=== PATIENT | male | born 1975 | race Hispanic/Latino ===

== ENCOUNTER 2017-02-18 19:05 | Inpatient (IN) | payer MEDICAID ==
[2017-02-18 19:05] VITALS: BMI 23.0
[2017-02-18] MEDS ORDERED: Sodium Chloride 0.9% 1,000 ML IV ONE (20:19)
--- NOTE | 2017-02-18 20:21 | C.PDOC ---
History Of Present Illness 41 y/o male presents to ED with complaints of abdominal pain and blurred vision for several weeks. Patient is an alcoholic and states he was admitted at [facility] for 5 days last week and was diagnosed with Pancreatitis . He was discharged 2 days ago. He was reportedly diagnosed with c.diff as well and ws discharge with a prescription for Flagyl that he did not fill. Patient admits to drinking ETOH daily (750ml). Patient denies fever,chills, chest pain, n/v/d or any other complaints at this time. Time Seen by Provider: 02/18/17 19:56 Chief Complaint (Nursing): Abdominal Pain History Per: Patient History/Exam Limitations: no limitations Onset/Duration Of Symptoms: Days Current Symptoms Are (Timing): Still Present Past Medical History Reviewed: Historical Data, Nursing Documentation, Vital Signs Vital Signs: Last Vital Signs Temp 97.3 F L 02/18/17 19:33 Pulse 119 H 02/18/17 19:33 Resp 16 02/18/17 19:33 BP 136/93 H 02/18/17 19:33 Pulse Ox 98 02/18/17 21:58 - Medical History PMH: Anxiety, Pancreatitis, Seizures (1 time) - [facility] Procedures DETOXIFICATION SERVICES FOR SUBSTANCE ABUSE TREATMENT (12/10/16) Family History: States: Unknown Family Hx - Social History Hx Alcohol Use: Yes Hx Substance Use: No (denies) - Immunization History Hx Tetanus Toxoid Vaccination: No Hx Influenza Vaccination: No Hx Pneumococcal Vaccination: No Review Of Systems Except As Marked, All Systems Reviewed And Found Negative. Constitutional: Negative for: Fever, Chills Eyes: Positive for: Vision Change Cardiovascular: Negative for: Chest Pain Gastrointestinal: Positive for: Abdominal Pain. Negative for: Nausea, Vomiting , Diarrhea Genitourinary: Negative for: Dysuria, Frequency Neurological: Negative for: Headache Physical Exam - Physical Exam Appears: No Acute Distress, Other (Intoxicated) Skin: Dry Head: Atraumatic, Normacephalic Eye(s): bilateral: Normal Inspection, PERRL, EOMI Oral Mucosa: Dry Cardiovascular: Rhythm Regular, No Murmur Respiratory: Normal Breath Sounds, No Rales, No Rhonchi, No Wheezing Gastrointestinal/Abdominal: Soft, No Tenderness, No Guarding, No Rebound Extremity: Normal ROM, Capillary Refill (<2 seconds) Neurological/Psych: Oriented x3, Other (Patient has slurred speech and unable to complete sentences due to flight of ideas and thoughts wandering.) ED Course And Treatment - Laboratory Results Result Diagrams: 02/18/17 20:35 02/18/17 20:35 Lab Interpretation: Abnormal (K+ 2.8 treated with Kdur, Lipase 1014, UDS + opiates and benzodiazepines, ETOH 144) O2 Sat by Pulse Oximetry: 98 (RA) Pulse Ox Interpretation: Normal Reevaluation Time: 21:58 Reassessment Condition: Improved (Patient appears comfortable.) - Physician Consult Information Time Consulting Physician Contacted: 21:58 Physician Contacted: Naila Aguilar Outcome Of Conversation: Patient to be admitted for treatment of alcoholic pancreatitis. Disposition - Disposition Disposition: HOSPITALIZED Disposition Time: 22:11 Condition: STABLE - POA Present On Arrival: None - Clinical Impression Clinical Impression: Acute alcoholic pancreatitis - Scribe Statement The provider has reviewed the documentation as recorded by the Tammieibcarla Sinha All medical record entries made by the Scribe were at my direction and personally dictated by me. I have reviewed the chart and agree that the record accurately reflects my personal performance of the history, physical exam, medical decision making, and the department course for this patient. I have also personally directed, reviewed, and agree with the discharge instructions and disposition.
[2017-02-18 20:41] LABS: BASO # 0.1 K/uL (0.0-0.2); BASO % 1.3 % (0.0-2.0); EOS # 0.1 K/uL (0.0-0.7); EOS % 1.6 % (0.0-4.0); HEMOGLOBIN 12.9 g/dL (12.0-18.0); LYMPH # 2.3 K/uL (1.0-4.3); LYMPH % 26.3 % (20.0-40.0); MEAN CELL VOLUME 99.5 fL (80.0-94.0); MEAN CORPUSCULAR HEMOGLOBIN 34.5 pg (27.0-31.0); MEAN CORPUSCULAR HGB CONC 34.7 g/dL (33.0-37.0); MEAN PLATELET VOLUME 7.9 fL (7.2-11.7); MONO # 1.4 K/uL (0.0-0.8); MONO % 16.2 % (0.0-10.0); NEUT # 4.7 K/uL (1.8-7.0); NEUT % 54.6 % (50.0-75.0); RBC 3.73 Mil/uL (4.40-5.90); WHITE BLOOD COUNT 8.6 K/uL (4.8-10.8)
[2017-02-18 20:52] LABS: ALBUMIN 4.6 g/dL (3.5-5.0)
[2017-02-18 20:54] LABS: GFR AFRICAN-AMERICAN > 60; GFR NON-AFRICAN AMERICAN > 60
[2017-02-18 20:55] LABS: ALB/GLOB RATIO 1.3 (1.0-2.1); ALT/SGPT 79 U/L (21-72); AST/SGOT 122 U/L (17-59); BLOOD UREA NITROGEN 19 mg/dL (9-20); LIPASE 1014 U/L (23-300)
[2017-02-18 21:11] LABS: SQUAMOUS EPITHIAL 1 /hpf (0-5); URINE BACTERIA RARE (<OCC); URINE BILIRUBIN 1+ (NEGATIVE); URINE BLOOD NEGATIVE (NEGATIVE); URINE CLARITY Hazy (Clear); URINE COLOR Amber (YELLOW); URINE GLUCOSE (UA) NORMAL (Normal); URINE HYALINE CAST >20 /lpf (0-2); URINE LEUKOCYTE ESTERASE NEG Leu/uL (Negative); URINE NITRATE NEGATIVE (NEGATIVE); URINE PROTEIN 2+ mg/dL (NEGATIVE)
[2017-02-18] MEDS ORDERED: Potassium Chloride 20 mEq ER Tab PO STA (21:12)
[2017-02-18 21:14] LABS: BARBITURATES, UR NEGATIVE (NEGATIVE); BENZODIAZEPINES, UR POSITIVE (NEGATIVE)
[2017-02-18 21:18] LABS: OPIATES, UR POSITIVE (NEGATIVE)
[2017-02-18 21:19] LABS: PHENCYCLIDINE, UR NEGATIVE (NEGATIVE)
[2017-02-18] MEDS ORDERED: Potassium Chloride 20 mEq ER Tab PO ONE (22:04)
[2017-02-18] MEDS ORDERED: Morphine 4 MG/ML VIAL IV PRN (23:57)
[2017-02-19] MEDS: Potassium Ch 20mEq in D5-1/2NS 1,000 ML IV SCH ×2 (00:50→21:18)
--- NOTE | 2017-02-19 02:18 | PCM.RRTMUL ---
<Leonie Griffin - Last Filed: 02/19/17 02:38> DEMO COORDINATOR Nurses Assessment - Situation Room Number:: 557 A - Vital Signs Blood Pressure:: 166/84 Pulse Rate:: 88 Respiratory Rate:: 20 Temperature:: 98.4 F I.Reason for DEMO COORDINATOR - A) Acute Change in Patient: Subjective: Seizure - A) Initial Vital Signs: Blood Pressure: 181/94 Pulse Rate: 114 Respiratory Rate: 20 O2 Sat by Pulse Oximetry: 95 Finger Stick Blood Glucose: 81 - B) Neurological Status (Select all that apply): Alert, Responsive, Verbal, Follows Commands, Confused. absent: Oriented - Constitutional Appears: Non-toxic, No Acute Distress, Unkempt - Head Head Exam: ATRAUMATIC, NORMAL INSPECTION - Eyes Eye Exam: EOMI, Normal appearance, PERRL - Respiratory Exam Respiratory Exam: Clear to Ausculation Bilateral, NORMAL BREATHING PATTERN. absent: Respiratory Distress - Cardiovascular Exam Cardiovascular Exam: REGULAR RHYTHM, +S1, +S2 - GI/Abdominal Exam GI & Abdominal Exam: Soft, Normal Bowel Sounds. absent: Distended, Firm, Guarding, Tenderness - Neurological Exam Neurological Exam: Alert, Awake, CN II-XII Intact. absent: Oriented x3 Plan - B. Assessment of Findings&Treatment Plan Rapid Response called for seizure activity. Per RN patient was foaming at the mouth and having a tonic clonic seizure for a couple minutes. Patient does not realize he had a seizure. Patient was talking denied SOB, chest pain. He had multiple bite douglas on his tongue appearing of different ages. Vitals stable. Patient was awake and talking in full sentences. On admission he has elevated alcohol level. Patient reports heavy alcohol use. CBC, CMP, MG, Phos, Polactin ordered given Thiamine 100mg IVP x 1 dose and Ativan 1mg IVP x 1 dose Ativan PO taper added, Ativan 1mg IVP Q3 hours prn MV/thiamine/folic acid Rec: Seizure workup per primary team. EEG ordered. <Patrick Orozco - Last Filed: 02/21/17 23:03> Attending/Attestation - Attestation I have personally seen and examined this patient.: Yes I have fully participated in the care of the patient.: Yes I have reviewed all pertinent clinical information, including history, physical exam and plan: Yes
[2017-02-19] MEDS ORDERED: Thiamine 100 mg/ml Inj IV STA (02:20)
[2017-02-19 02:56] LABS: AMYLASE 339 U/L (30-110); BLOOD UREA NITROGEN 13 mg/dL (9-20); GFR AFRICAN-AMERICAN > 60; GFR NON-AFRICAN AMERICAN > 60
[2017-02-19 02:57] LABS: CALCIUM 8.4 mg/dl (8.6-10.4); MAGNESIUM 1.6 mg/dL (1.6-2.3)
[2017-02-19 03:05] LABS: BASO # 0.1 K/uL (0.0-0.2); BASO % 0.7 % (0.0-2.0); EOS # 0.2 K/uL (0.0-0.7); EOS % 2.7 % (0.0-4.0); HEMOGLOBIN 12.2 g/dL (12.0-18.0); LYMPH % 38.4 % (20.0-40.0); MEAN CELL VOLUME 101.2 fL (80.0-94.0); MEAN CORPUSCULAR HEMOGLOBIN 34.3 pg (27.0-31.0); MEAN CORPUSCULAR HGB CONC 33.9 g/dL (33.0-37.0); MEAN PLATELET VOLUME 8.4 fL (7.2-11.7); MONO # 1.4 K/uL (0.0-0.8); NEUT # 3.1 K/uL (1.8-7.0); NEUT % 40.2 % (50.0-75.0); NRBC % 0.1 % (0.0-2.0); RBC 3.56 Mil/uL (4.40-5.90); RED CELL DISTRIBUTION WIDTH 12.9 % (11.5-14.5); WHITE BLOOD COUNT 7.7 K/uL (4.8-10.8)
[2017-02-19] MEDS: Hydrocortisone 2.5% Rectal Cream(30 gm) PR SCH ×2 (11:16→18:48)
[2017-02-19] MEDS: Multiple Vitamins Tab PO SCH (11:17)
--- NOTE | 2017-02-19 11:44 | US ---
HISTORY: Acute pancreatitis COMPARISON: None available. TECHNIQUE: Sonographic evaluation of the abdomen. FINDINGS: LIVER: Measures 18.9 cm in sagittal dimension. Echogenic liver may be seen in setting of hepatic parenchymal disease or fatty infiltration. No focal hepatic mass identified. The main portal vein appears patent with normal directional flow. No intrahepatic bile duct dilatation. GALLBLADDER: No gallstones. No gallbladder wall thickening. Negative sonographic Esteban's sign as assessed by the wrapper stripper. COMMON BILE DUCT: Measures 4 mm. PANCREAS: Not well visualized. RIGHT KIDNEY: Measures 10.9 x 5.2 x 5.8cm. No obstructing calculus or hydronephrosis identified. LEFT KIDNEY: Measures 11.2 x 6.2 x 6.6cm. No obstructing calculus or hydronephrosis identified. SPLEEN: Measures approximately 9.9 cm AORTA: Limited views appear unremarkable. IVC: Limited views appear unremarkable. OTHER FINDINGS: None. IMPRESSION: Echogenic liver may be seen in setting of hepatic parenchymal disease or fatty infiltration.
[2017-02-19 12:12] LABS: ALBUMIN 3.7 g/dL (3.5-5.0)
[2017-02-19 12:15] LABS: ALB/GLOB RATIO 1.3 (1.0-2.1); ALT/SGPT 61 U/L (21-72); AST/SGOT 73 U/L (17-59); BLOOD UREA NITROGEN 11 mg/dL (9-20); GFR AFRICAN-AMERICAN > 60; GFR NON-AFRICAN AMERICAN > 60
[2017-02-19 12:16] LABS: LIPASE 972 U/L (23-300); MAGNESIUM 1.6 mg/dL (1.6-2.3)
[2017-02-19 12:33] LABS: PROLACTIN 11.4 ng/mL (3.7-17.9)
[2017-02-19] MEDS ORDERED: Potassium Chloride 20 mEq/15 ml LIQ UD PO ONE (17:00)
--- NOTE | 2017-02-19 18:06 | CP.PCM.HP ---
History of Present Illness - History of Present Illness History of Present Illness: pt admited from er for abd pain has been drinking alc smoks and has pancreatitis Present on Admission - Present on Admission Any Indicators Present on Admission: No Review of Systems - Review of Systems Systems not reviewed;Unavailable: Acuity of Condition, Intoxicated - Constitutional Constitutional: Fatigue - EENT Eyes: Blurred Vision Nose/Mouth/Throat: As Per HPI - Cardiovascular Cardiovascular: Chest Pain at Rest, Dyspnea on Exertion - Respiratory Respiratory: Dyspnea on Exertion - Gastrointestinal Gastrointestinal: Abdominal Pain, Bloating, Nausea - Genitourinary Genitourinary: As Per HPI - Musculoskeletal Musculoskeletal: As Per HPI - Integumentary Integumentary: As Per HPI - Neurological Neurological: Convulsions, Dizziness Additional comments: hx - Psychiatric Psychiatric: Change in Appetite - Endocrine Endocrine: As Per HPI - Hematologic/Lymphatic Hematologic: As Per HPI Past Patient History - Infectious Disease Hx of Infectious Diseases: C.diff - Past Medical History & Family History Past Medical History?: No - Past Social History Smoking Status: Current Some Days Smoker - CARDIAC Hx Hypertension: No - PULMONARY Hx Respiratory Disorders: No - NEUROLOGICAL Hx Seizures: Yes (1 time) - HEENT Hx HEENT Problems: Yes (wears glasses) - RENAL Hx Chronic Kidney Disease: No - ENDOCRINE/METABOLIC Hx Endocrine Disorders: No - HEMATOLOGICAL/ONCOLOGICAL Hx Human Immunodeficiency Virus (HIV): No - INTEGUMENTARY Hx Dermatological Problems: No - MUSCULOSKELETAL/RHEUMATOLOGICAL Hx Musculoskeletal Disorders: Yes Hx Falls: No Hx Unsteady Gait: Yes - GASTROINTESTINAL Hx Pancreatitis: Yes - GENITOURINARY/GYNECOLOGICAL Hx Sexually Transmitted Disorders: No - PSYCHIATRIC Hx Substance Use: No - SURGICAL HISTORY Hx Surgeries: Yes Other/Comment: colonoscopy 11/2016 - ANESTHESIA Hx Anesthesia: No Hx Anesthesia Reactions: No Hx Malignant Hyperthermia: No Has any member of the family had a problem w/ anesthesia?: No Meds Allergies/Adverse Reactions: Allergies Allergy/AdvReac Type Severity Reaction Status Date / Time No Known Allergies Allergy Verified 01/06/17 20:01 Physical Exam - Constitutional Appears: In Acute Distress - Head Exam Head Exam: NORMAL INSPECTION - Eye Exam Eye Exam: Normal appearance Pupil Exam: NORMAL ACCOMODATION - ENT Exam ENT Exam: Mucous Membranes Moist - Neck Exam Neck exam: Positive for: Full Rom - Respiratory Exam Respiratory Exam: Clear to Auscultation Bilateral - Cardiovascular Exam Cardiovascular Exam: REGULAR RHYTHM - GI/Abdominal Exam GI & Abdominal Exam: Normal Bowel Sounds - Exam Exam: NORMAL INSPECTION External exam: NORMAL EXTERNAL EXAM - Back Exam Back exam: NORMAL INSPECTION - Neurological Exam Neurological exam: Oriented x3 - Psychiatric Exam Psychiatric exam: Normal Affect - Skin Skin Exam: Dry Results - Vital Signs Recent Vital Signs: Last Vital Signs Temp 98.2 F 02/19/17 16:00 Pulse 86 02/19/17 16:00 Resp 20 02/19/17 16:00 BP 132/80 02/19/17 16:00 Pulse Ox 98 02/19/17 16:00 - Labs Result Diagrams: 02/19/17 02:47 02/19/17 11:55 Labs: Laboratory Results - last 24 hr 02/18/17 02/19/17 02/19/17 23:55 02:03 02:36 WBC RBC Hgb Hct MCV MCH MCHC RDW Plt Count MPV Neut % (Auto) Lymph % (Auto) Franklin % (Auto) Eos % (Auto) Baso % (Auto) Neut # Lymph # Franklin # Eos # Baso # Sodium 137 Potassium 2.9 L Chloride 94 L Carbon Dioxide 11 L* D Anion Gap 35 H BUN 13 Creatinine 0.8 Est GFR ( Amer) > 60 Est GFR (Non-Af Amer) > 60 POC Glucose (mg/dL) 81 Random Glucose 90 Calcium 8.4 L Phosphorus 4.4 Magnesium 1.6 Total Bilirubin AST ALT Alkaline Phosphatase Total Protein Albumin Globulin Albumin/Globulin Ratio Amylase 339 H Lipase Prolactin C. difficile Ag & Toxin Negative 02/19/17 02/19/17 02:47 11:55 WBC 7.7 RBC 3.56 L Hgb 12.2 Hct 36.0 MCV 101.2 H MCH 34.3 H MCHC 33.9 RDW 12.9 Plt Count 193 MPV 8.4 Neut % (Auto) 40.2 L Lymph % (Auto) 38.4 Franklin % (Auto) 18.0 H Eos % (Auto) 2.7 Baso % (Auto) 0.7 Neut # 3.1 Lymph # 3.0 Franklin # 1.4 H Eos # 0.2 Baso # 0.1 Sodium 135 Potassium 2.7 L Chloride 94 L Carbon Dioxide 20 L Anion Gap 24 H BUN 11 Creatinine 0.6 L Est GFR ( Amer) > 60 Est GFR (Non-Af Amer) > 60 POC Glucose (mg/dL) Random Glucose 70 L Calcium 8.0 L Phosphorus 3.0 Magnesium 1.6 Total Bilirubin 1.4 H AST 73 H D ALT 61 Alkaline Phosphatase 64 Total Protein 6.5 Albumin 3.7 Globulin 2.8 Albumin/Globulin Ratio 1.3 Amylase Lipase 972 H Prolactin 11.4 C. difficile Ag & Toxin Assessment & Plan - Assessment and Plan (Free Text) Assessment: alcoholic pancreatitis hx of seizer disorder Plan: as per orders - Date & Time Date: 02/19/17 Time: 18:10
[2017-02-19] MEDS ORDERED: Ciprofloxacin 400mg/200ml D5W 400 MG/200 ML BAG IVPB SCH (18:15)
--- NOTE | 2017-02-19 18:19 | CP.PCM.CON ---
History of Present Illness - History of Present Illness History of Present Illness: This is a case of 41 yr old male with 25 yr of alcohol dependence now drinking 750 ml of vodka daily admitted to for abdominal pain and dx to have alcohil pancreatitis. Patient was also recenttly admitted at [facility] for similar complaints. Patient' BAL level was 144 and UDS were positive for Opiates and benzos. Patient still complaining of abdominal pain but wants to go to [facility] a rehab in [facility] after this admission. Patient is on Ativan prn and Morphine prn but not in distress when seen. MSE- fairly developed male, seen in his room, alert and oriented x 3, mood is calm, affect is reactive, speech is spontaneous. Thought process- coherent Thought content-no si or hi, no psychosis. Attention/Memory- fair. Insight and Judgment limited,.Impulse control fair. Review of Systems - Review of Systems Review of Systems: Patient is alert, verbal. cooperative - Constitutional Constitutional: Fatigue (u) - EENT Additional comments: no headche, no blurring of vision - Cardiovascular Additional comments: no chest pain - Respiratory Additional comments: no dyspnea - Gastrointestinal Additional comments: has abdominal pain, no vomiting or nausea - Musculoskeletal Additional comments: feels weak - Endocrine Additional Comments: Alert and Oriented x3 Past Patient History - Infectious Disease Hx of Infectious Diseases: C.diff - Past Medical History & Family History Past Medical History?: No - Past Social History Smoking Status: Current Some Days Smoker - CARDIAC Hx Hypertension: No - PULMONARY Hx Respiratory Disorders: No - NEUROLOGICAL Hx Seizures: Yes (1 time) - HEENT Hx HEENT Problems: Yes (wears glasses) - RENAL Hx Chronic Kidney Disease: No - ENDOCRINE/METABOLIC Hx Endocrine Disorders: No - HEMATOLOGICAL/ONCOLOGICAL Hx Human Immunodeficiency Virus (HIV): No - INTEGUMENTARY Hx Dermatological Problems: No - MUSCULOSKELETAL/RHEUMATOLOGICAL Hx Musculoskeletal Disorders: Yes Hx Falls: No Hx Unsteady Gait: Yes - GASTROINTESTINAL Hx Pancreatitis: Yes - GENITOURINARY/GYNECOLOGICAL Hx Sexually Transmitted Disorders: No - PSYCHIATRIC Hx Substance Use: No - SURGICAL HISTORY Hx Surgeries: Yes Other/Comment: colonoscopy 11/2016 - ANESTHESIA Hx Anesthesia: No Hx Anesthesia Reactions: No Hx Malignant Hyperthermia: No Has any member of the family had a problem w/ anesthesia?: No Meds Allergies/Adverse Reactions: Allergies Allergy/AdvReac Type Severity Reaction Status Date / Time No Known Allergies Allergy Verified 01/06/17 20:01 - Medications Medications: Current Medications Folic Acid (Folic Acid) 1 mg PO DAILY [facility] Last Admin: 02/19/17 11:16 Dose: 1 mg Hydrocortisone (Anusol-Hc) 1 gm ME BID [facility] Last Admin: 02/19/17 11:16 Dose: Not Given Potassium Chloride/Dextrose/Sod Cl (Potassium Chl 20 Meq In D5-1/2ns) 1,000 mls @ 80 mls/hr IV .[id number] [facility] Last Admin: 02/19/17 00:50 Dose: 80 mls/hr Ciprofloxacin (Cipro 400mg/200ml Dsw) 400 mg in 200 mls @ 133 mls/hr IVPB Q12H [facility] Lorazepam (Ativan) 2 mg PO Q4 [facility] PRN Reason: Taper Stop: 02/24/17 02:29 Last Admin: 02/19/17 16:49 Dose: 2 mg Lorazepam (Ativan) 1 mg IVP Q3 PRN PRN Reason: Anxiety Morphine Sulfate (Morphine) 1 mg IV Q4 PRN PRN Reason: Pain, moderate (4-7) Multivitamins (Hexavitamin) 1 tab PO DAILY [facility] Last Admin: 02/19/17 11:17 Dose: 1 tab Nicotine (Nicoderm Cq) 1 patch TD DAILY [facility] Last Admin: 02/19/17 11:17 Dose: 1 patch Thiamine HCl (Vitamin B1 Tab) 100 mg PO DAILY [facility] Last Admin: 02/19/17 11:17 Dose: 100 mg Results - Vital Signs Recent Vital Signs: Last Vital Signs Temp 98.2 F 02/19/17 16:00 Pulse 86 02/19/17 16:00 Resp 20 02/19/17 16:00 BP 132/80 02/19/17 16:00 Pulse Ox 98 02/19/17 16:00 - Labs Result Diagrams: 02/19/17 02:47 02/19/17 11:55 Labs: Laboratory Results - last 24 hr 02/18/17 02/19/17 02/19/17 23:55 02:03 02:36 WBC RBC Hgb Hct MCV MCH MCHC RDW Plt Count MPV Neut % (Auto) Lymph % (Auto) [place] % (Auto) Eos % (Auto) Baso % (Auto) Neut # Lymph # [place] # Eos # Baso # Sodium 137 Potassium 2.9 L Chloride 94 L Carbon Dioxide 11 L* D Anion Gap 35 H BUN 13 Creatinine 0.8 Est GFR ( Amer) > 60 Est GFR (Non-Af Amer) > 60 POC Glucose (mg/dL) 81 Random Glucose 90 Calcium 8.4 L Phosphorus 4.4 Magnesium 1.6 Total Bilirubin AST ALT Alkaline Phosphatase Total Protein Albumin Globulin Albumin/Globulin Ratio Amylase 339 H Lipase Prolactin C. difficile Ag & Toxin Negative 02/19/17 02/19/17 02:47 11:55 WBC 7.7 RBC 3.56 L Hgb 12.2 Hct 36.0 MCV 101.2 H MCH 34.3 H MCHC 33.9 RDW 12.9 Plt Count 193 MPV 8.4 Neut % (Auto) 40.2 L Lymph % (Auto) 38.4 [place] % (Auto) 18.0 H Eos % (Auto) 2.7 Baso % (Auto) 0.7 Neut # 3.1 Lymph # 3.0 [place]ink[place] # 1.4 H Eos # 0.2 Baso # 0.1 Sodium 135 Potassium 2.7 L Chloride 94 L Carbon Dioxide 20 L Anion Gap 24 H BUN 11 Creatinine 0.6 L Est GFR ( Amer) > 60 Est GFR (Non-Af Amer) > 60 POC Glucose (mg/dL) Random Glucose 70 L Calcium 8.0 L Phosphorus 3.0 Magnesium 1.6 Total Bilirubin 1.4 H AST 73 H D ALT 61 Alkaline Phosphatase 64 Total Protein 6.5 Albumin 3.7 Globulin 2.8 Albumin/Globulin Ratio 1.3 Amylase Lipase 972 H Prolactin 11.4 C. difficile Ag & Toxin Assessment & Plan - Assessment and Plan (Free Text) Assessment: Alcohol dependence Alcohol related pancreatitis Plan: Continue Ativan prn as ordered. Continue pain meds as ordered. Patient will be going to [facility] for inpt rehab once medically cleared.
[2017-02-19] MEDS: Ciprofloxacin 400mg/200ml D5W 400 MG/200 ML BAG IVPB SCH (21:00)
[2017-02-20 07:36] LABS: BASO # 0.1 K/uL (0.0-0.2); EOS # 0.2 K/uL (0.0-0.7); EOS % 4.2 % (0.0-4.0); HEMOGLOBIN 11.1 g/dL (12.0-18.0); LYMPH # 1.5 K/uL (1.0-4.3); LYMPH % 26.8 % (20.0-40.0); MEAN CELL VOLUME 99.9 fL (80.0-94.0); MEAN CORPUSCULAR HEMOGLOBIN 34.3 pg (27.0-31.0); MEAN CORPUSCULAR HGB CONC 34.4 g/dL (33.0-37.0); MEAN PLATELET VOLUME 8.1 fL (7.2-11.7); MONO % 17.9 % (0.0-10.0); NEUT # 2.7 K/uL (1.8-7.0); NEUT % 50.1 % (50.0-75.0); NRBC % 0.1 % (0.0-2.0); RBC 3.24 Mil/uL (4.40-5.90); RED CELL DISTRIBUTION WIDTH 12.4 % (11.5-14.5); WHITE BLOOD COUNT 5.5 K/uL (4.8-10.8)
[2017-02-20 07:37] LABS: B-TYPE NATRIURETIC PEPTIDE 84.6 pg/mL (0-450)
[2017-02-20 07:40] LABS: ALBUMIN 3.3 g/dL (3.5-5.0)
[2017-02-20 07:43] LABS: ALB/GLOB RATIO 1.1 (1.0-2.1); AST/SGOT 61 U/L (17-59); GFR AFRICAN-AMERICAN > 60; GFR NON-AFRICAN AMERICAN > 60
[2017-02-20 07:44] LABS: ALT/SGPT 49 U/L (21-72); BLOOD UREA NITROGEN 5 mg/dL (9-20); CALCIUM 8.4 mg/dl (8.6-10.4); LIPASE 866 U/L (23-300); MAGNESIUM 1.7 mg/dL (1.6-2.3)
[2017-02-20] MEDS: Ciprofloxacin 400mg/200ml D5W 400 MG/200 ML BAG IVPB SCH ×2 (08:40→22:11)
[2017-02-20] MEDS: Multiple Vitamins Tab PO SCH (10:18)
[2017-02-20] MEDS: Hydrocortisone 2.5% Rectal Cream(30 gm) PR SCH ×2 (10:18→17:48)
--- NOTE | 2017-02-20 10:21 | CP.PCM.PN ---
Subjective - Date & Time of Evaluation Date of Evaluation: 02/20/17 Time of Evaluation: 10:19 - Subjective Subjective: FEELS WEEKE STILL TREMULOUS Objective - Vital Signs/Intake and Output Vital Signs (last 24 hours): Temp Pulse Resp BP Pulse Ox 98.8 F 81 24 125/81 97 02/20/17 08:00 02/20/17 08:00 02/20/17 08:00 02/20/17 08:00 02/20/17 08:00 Intake and Output: 02/20/17 02/20/17 06:59 18:59 Intake Total 800 Output Total 1000 Balance -200 - Medications Medications: Current Medications Folic Acid (Folic Acid) 1 mg PO DAILY [facility] Last Admin: 02/20/17 10:18 Dose: 1 mg Hydrocortisone (Anusol-Hc) 1 gm WA BID [facility] Last Admin: 02/20/17 10:18 Dose: Not Given Potassium Chloride/Dextrose/Sod Cl (Potassium Chl 20 Meq In D5-1/2ns) 1,000 mls @ 80 mls/hr IV .[id number] [facility] Last Admin: 02/19/17 21:18 Dose: 80 mls/hr Ciprofloxacin (Cipro 400mg/200ml Dsw) 400 mg in 200 mls @ 133 mls/hr IVPB Q12H [facility] Last Admin: 02/20/17 08:40 Dose: 133 mls/hr Potassium Chloride (Potassium Chloride 20 Meq/100 Ml) 20 meq in 100 mls @ 50 mls/hr IVPB Q2H [facility] Stop: 02/20/17 14:59 Last Admin: 02/20/17 10:18 Dose: 50 mls/hr Lorazepam (Ativan) 2 mg PO Q4 [facility] PRN Reason: Taper Stop: 02/24/17 02:29 Last Admin: 02/20/17 08:40 Dose: 2 mg Lorazepam (Ativan) 1 mg IVP Q3 PRN PRN Reason: Anxiety Morphine Sulfate (Morphine) 1 mg IV Q4 PRN PRN Reason: Pain, moderate (4-7) Last Admin: 02/20/17 08:42 Dose: 1 mg Multivitamins (Hexavitamin) 1 tab PO DAILY [facility] Last Admin: 02/20/17 10:18 Dose: 1 tab Nicotine (Nicoderm Cq) 1 patch TD DAILY [facility] Last Admin: 02/20/17 10:18 Dose: 1 patch Thiamine HCl (Vitamin B1 Tab) 100 mg PO DAILY [facility] Last Admin: 02/20/17 10:18 Dose: 100 mg - Labs Labs: 02/20/17 07:06 02/20/17 07:06 - Constitutional Appears: Non-toxic - Head Exam Head Exam: NORMAL INSPECTION - Eye Exam Eye Exam: Normal appearance Pupil Exam: NORMAL ACCOMODATION - ENT Exam ENT Exam: Mucous Membranes Moist - Neck Exam Neck Exam: Full ROM - Respiratory Exam Respiratory Exam: NORMAL BREATHING PATTERN - Cardiovascular Exam Cardiovascular Exam: REGULAR RHYTHM - GI/Abdominal Exam GI & Abdominal Exam: Tenderness, Normal Bowel Sounds - Rectal Exam Rectal Exam: NORMAL INSPECTION - Exam Exam: NORMAL INSPECTION - Extremities Exam Extremities Exam: Normal Capillary Refill - Back Exam Back Exam: NORMAL INSPECTION - Neurological Exam Neurological Exam: Oriented x3 - Psychiatric Exam Psychiatric exam: Normal Affect - Skin Skin Exam: Normal Color Assessment and Plan - Assessment and Plan (Free Text) Assessment: AC ALC PANCREATITIS HYPOKALEAMIA HYPOCALCEAMIA WITHDRWAL Plan: CONT SAME PLAN
[2017-02-20] MEDS: Potassium Ch 20mEq in D5-1/2NS 1,000 ML IV SCH ×2 (12:36→14:04)
--- NOTE | 2017-02-20 16:03 | CP.PCM.PN ---
Subjective - Date & Time of Evaluation Date of Evaluation: 02/20/17 Time of Evaluation: 16:00 - Subjective Subjective: Patient seen today and complaining of feeling hungry as he is still NPO. Patient is still having mild abdominal pain. Patient states he will be going to [facility] in [facility] for inpt rehab after this medical admission. Meds reviewed and pt is on Ativan 2 mg po q 4h x 24 hr, Morphine1 mg iv q 4h prn , Ativan 1 mg iv q3h prn. Patient is calm and cooperative and not exhibiting major sign and symptoms of alcohol withdrawal. when seen. MSE- fairly developed male, seen in his room. " I'm hungry". O x 3. Mood is irritable. Affect is reactve. Speech is spontaneous. Thought process - coherent. Thought content- pt wants to eat regular food. no si or hi. no psychosis. Attention and Memory fair. Insight and Judgment fair. Impulse control. Lipase level- 866. Patient is still NPO and followed by GI. Objective - Vital Signs/Intake and Output Vital Signs (last 24 hours): Temp Pulse Resp BP Pulse Ox 98.8 F 71 24 125/81 97 02/20/17 08:00 02/20/17 08:00 02/20/17 08:00 02/20/17 08:00 02/20/17 08:00 Intake and Output: 02/20/17 02/20/17 06:59 18:59 Intake Total 800 Output Total 1000 850 Balance -200 -850 - Medications Medications: Current Medications Chlordiazepoxide (Librium) 50 mg PO Q4H PRN PRN Reason: Anxiety Folic Acid (Folic Acid) 1 mg PO DAILY [facility] Last Admin: 02/20/17 10:18 Dose: 1 mg Hydrocortisone (Anusol-Hc) 1 gm [place] BID [facility] Last Admin: 02/20/17 10:18 Dose: Not Given Potassium Chloride/Dextrose/Sod Cl (Potassium Chl 20 Meq In D5-1/2ns) 1,000 mls @ 80 mls/hr IV .[id number] [facility] Last Admin: 02/20/17 14:04 Dose: Not Given Ciprofloxacin (Cipro 400mg/200ml Dsw) 400 mg in 200 mls @ 133 mls/hr IVPB Q12H [facility] Last Admin: 02/20/17 08:40 Dose: 133 mls/hr Lorazepam (Ativan) 1 mg IVP Q3 PRN PRN Reason: Anxiety Morphine Sulfate (Morphine) 1 mg IV Q4 PRN PRN Reason: Pain, moderate (4-7) Last Admin: 02/20/17 08:42 Dose: 1 mg Multivitamins (Hexavitamin) 1 tab PO DAILY [facility] Last Admin: 02/20/17 10:18 Dose: 1 tab Nicotine (Nicoderm Cq) 1 patch TD DAILY [facility] Last Admin: 02/20/17 10:18 Dose: 1 patch Potassium Chloride (K-Dur 20 Meq Er Tab) 20 meq PO ONCE ONE Stop: 02/21/17 16:01 Thiamine HCl (Vitamin B1 Tab) 100 mg PO DAILY [facility] Last Admin: 02/20/17 10:18 Dose: 100 mg - Labs Labs: 02/20/17 07:06 02/20/17 07:06 - Constitutional Appears: Well, No Acute Distress - Head Exam Head Exam: NORMOCEPHALIC - Eye Exam Pupil Exam: NORMAL ACCOMODATION - ENT Exam ENT Exam: Normal Exam - Neck Exam Neck Exam: Full ROM - Respiratory Exam Additional comments: no dyspnea - Cardiovascular Exam Additional comments: no chest pain - GI/Abdominal Exam Additional comments: has mild abdominal pain, feels hungry - Exam Additional comments: no dysuria - Extremities Exam Additional comments: Has mild hand tremors - Back Exam Additional comments: no back pain - Neurological Exam Neurological Exam: Alert, Awake, Oriented x3 - Additional Findings Additional findings: no diaphoresis Assessment and Plan - Assessment and Plan (Free Text) Assessment: Alcohol dependence Alcoholic pancreatitis Plan: Continue present plan and tx plan. Will stop Ativan standing as pt is on Morphine prn to avoid respiratory sedation as side effect. GI consult. Patient wants to go to [facility] for inpt rehab once medically cleared.
[2017-02-20] MEDS ORDERED: Potassium Chloride 20 mEq ER Tab PO ONE (19:00)
[2017-02-21 08:11] LABS: GFR AFRICAN-AMERICAN > 60; GFR NON-AFRICAN AMERICAN > 60; LIPASE 649 U/L (23-300)
[2017-02-21 08:12] LABS: BLOOD UREA NITROGEN 2 mg/dL (9-20); CALCIUM 8.4 mg/dl (8.6-10.4)
[2017-02-21] MEDS: Ciprofloxacin 400mg/200ml D5W 400 MG/200 ML BAG IVPB SCH ×2 (08:33→19:05)
[2017-02-21] MEDS: Multiple Vitamins Tab PO SCH (11:32)
[2017-02-21] MEDS: Hydrocortisone 2.5% Rectal Cream(30 gm) PR SCH ×2 (11:33→17:00)
[2017-02-21] MEDS: Potassium Chloride 20 mEq ER Tab PO SCH ×2 (11:33→22:59)
[2017-02-21] MEDS: Potassium Ch 20mEq in D5-1/2NS 1,000 ML IV SCH (13:30)
[2017-02-21] MEDS ORDERED: Potassium Chloride 20 mEq ER Tab PO ONE (23:15)
[2017-02-22 07:35] LABS: GFR AFRICAN-AMERICAN > 60; GFR NON-AFRICAN AMERICAN > 60
[2017-02-22 07:36] LABS: CALCIUM 8.8 mg/dl (8.6-10.4)
[2017-02-22 07:57] LABS: BLOOD UREA NITROGEN < 2 mg/dL (9-20)
[2017-02-22] MEDS: Ciprofloxacin 400mg/200ml D5W 400 MG/200 ML BAG IVPB SCH ×2 (08:59→20:16)
[2017-02-22] MEDS: Multiple Vitamins Tab PO SCH (09:30)
[2017-02-22] MEDS: Potassium Chloride 20 mEq ER Tab PO SCH ×2 (09:30→17:02)
[2017-02-22] MEDS: Hydrocortisone 2.5% Rectal Cream(30 gm) PR SCH ×2 (09:31→17:09)
--- NOTE | 2017-02-22 11:02 | CP.PCM.PN ---
Subjective - Date & Time of Evaluation Date of Evaluation: 02/22/17 Time of Evaluation: 11:00 - Subjective Subjective: tolerating diet still slight abd pain Objective - Vital Signs/Intake and Output Vital Signs (last 24 hours): Temp Pulse Resp BP Pulse Ox 97.9 F 99 H 20 142/93 H 97 02/22/17 00:20 02/22/17 08:00 02/22/17 00:20 02/22/17 00:20 02/22/17 00:20 Intake and Output: 02/22/17 02/22/17 06:59 18:59 Intake Total 880 Output Total 1100 Balance -220 - Medications Medications: Current Medications Chlordiazepoxide (Librium) 50 mg PO Q4H PRN PRN Reason: Anxiety Last Admin: 02/22/17 08:38 Dose: 50 mg Folic Acid (Folic Acid) 1 mg PO DAILY [facility] Last Admin: 02/22/17 09:30 Dose: 1 mg Hydrocortisone (Anusol-Hc) 1 gm [place] BID [facility] Last Admin: 02/22/17 09:31 Dose: Not Given Ciprofloxacin (Cipro 400mg/200ml Dsw) 400 mg in 200 mls @ 133 mls/hr IVPB Q12H [facility] Last Admin: 02/22/17 08:59 Dose: 133 mls/hr Lorazepam (Ativan) 1 mg IVP Q3 PRN PRN Reason: Anxiety Last Admin: 02/22/17 02:11 Dose: 1 mg Morphine Sulfate (Morphine) 1 mg IV Q4 PRN PRN Reason: Pain, moderate (4-7) Last Admin: 02/22/17 08:38 Dose: 1 mg Multivitamins (Hexavitamin) 1 tab PO DAILY [facility] Last Admin: 02/22/17 09:30 Dose: 1 tab Nicotine (Nicoderm Cq) 1 patch TD DAILY [facility] Last Admin: 02/22/17 09:30 Dose: 1 patch Potassium Chloride (K-Dur 20 Meq Er Tab) 40 meq PO BID [facility] Last Admin: 02/22/17 09:30 Dose: 40 meq Thiamine HCl (Vitamin B1 Tab) 100 mg PO DAILY [facility] Last Admin: 02/22/17 09:30 Dose: 100 mg - Labs Labs: 02/20/17 07:06 02/22/17 06:51 - Constitutional Appears: Non-toxic - Head Exam Head Exam: NORMAL INSPECTION - Eye Exam Eye Exam: Normal appearance Pupil Exam: NORMAL ACCOMODATION - ENT Exam ENT Exam: Normal Exam - Neck Exam Neck Exam: Full ROM - Respiratory Exam Respiratory Exam: NORMAL BREATHING PATTERN - Cardiovascular Exam Cardiovascular Exam: REGULAR RHYTHM - GI/Abdominal Exam GI & Abdominal Exam: Soft, Tenderness - Rectal Exam Rectal Exam: NORMAL INSPECTION - Extremities Exam Extremities Exam: Normal Inspection - Back Exam Back Exam: NORMAL INSPECTION - Neurological Exam Neurological Exam: Alert, Oriented x3 - Psychiatric Exam Psychiatric exam: Normal Affect - Skin Skin Exam: Normal Color Assessment and Plan - Assessment and Plan (Free Text) Assessment: pancreatitis alc abuse Plan: increase diet cont same orders
--- NOTE | 2017-02-22 13:19 | CP.PCM.PN ---
Subjective - Date & Time of Evaluation Date of Evaluation: 02/22/17 Time of Evaluation: 13:15 - Subjective Subjective: Patient is doing better and reports no abdominal pain. Last lipase level is 649. Patient is cooperative and wants to go out for 5 min to breath fresh air. Objective - Vital Signs/Intake and Output Vital Signs (last 24 hours): Temp Pulse Resp BP Pulse Ox 98 F 81 18 148/98 H 97 02/22/17 08:00 02/22/17 08:00 02/22/17 08:00 02/22/17 08:00 02/22/17 08:00 Intake and Output: 02/22/17 02/22/17 06:59 18:59 Intake Total 880 Output Total 1100 Balance -220 - Medications Medications: Current Medications Chlordiazepoxide (Librium) 50 mg PO Q4H PRN PRN Reason: Anxiety Last Admin: 02/22/17 08:38 Dose: 50 mg Folic Acid (Folic Acid) 1 mg PO DAILY [facility] Last Admin: 02/22/17 09:30 Dose: 1 mg Hydrocortisone (Anusol-Hc) 1 gm [place] BID [facility] Last Admin: 02/22/17 09:31 Dose: Not Given Ciprofloxacin (Cipro 400mg/200ml Dsw) 400 mg in 200 mls @ 133 mls/hr IVPB Q12H [facility] Last Admin: 02/22/17 08:59 Dose: 133 mls/hr Lorazepam (Ativan) 1 mg IVP Q3 PRN PRN Reason: Anxiety Last Admin: 02/22/17 02:11 Dose: 1 mg Morphine Sulfate (Morphine) 1 mg IV Q4 PRN PRN Reason: Pain, moderate (4-7) Last Admin: 02/22/17 08:38 Dose: 1 mg Multivitamins (Hexavitamin) 1 tab PO DAILY [facility] Last Admin: 02/22/17 09:30 Dose: 1 tab Nicotine (Nicoderm Cq) 1 patch TD DAILY [facility] Last Admin: 02/22/17 09:30 Dose: 1 patch Potassium Chloride (K-Dur 20 Meq Er Tab) 40 meq PO BID [facility] Last Admin: 02/22/17 09:30 Dose: 40 meq Thiamine HCl (Vitamin B1 Tab) 100 mg PO DAILY [facility] Last Admin: 02/22/17 09:30 Dose: 100 mg - Labs Labs: 02/20/17 07:06 02/22/17 06:51 - Constitutional Appears: Well, No Acute Distress - Head Exam Head Exam: NORMOCEPHALIC - Eye Exam Eye Exam: EOMI Pupil Exam: NORMAL ACCOMODATION - ENT Exam ENT Exam: Normal Exam - Neck Exam Neck Exam: Full ROM - Respiratory Exam Additional comments: no dyspnea - Cardiovascular Exam Additional comments: no chest pain - GI/Abdominal Exam Additional comments: abdominal pain improving, no nausea or vomiting - Exam Additional comments: no dysuria - Extremities Exam Extremities Exam: Normal Inspection Additional comments: no tremors - Back Exam Additional comments: no back pain - Neurological Exam Neurological Exam: Alert, Awake, Normal Gait, Oriented x3 Assessment and Plan - Assessment and Plan (Free Text) Assessment: Alcohol dependence Alcoholic related pancreatitis Plan: Continue present tx plan. Will refer pt to [facility] for inpt rehab once medically cleared.
[2017-02-22 17:01] VITALS: RESP 20
[2017-02-22] MEDS ORDERED: Potassium Chloride 20 mEq ER Tab PO ONE (23:15)
[2017-02-23] MEDS: Ciprofloxacin 400mg/200ml D5W 400 MG/200 ML BAG IVPB SCH ×2 (08:57→19:56)
[2017-02-23] MEDS: Potassium Chloride 20 mEq ER Tab PO SCH ×2 (10:40→17:45)
[2017-02-23] MEDS: Hydrocortisone 2.5% Rectal Cream(30 gm) PR SCH ×2 (10:40→17:46)
[2017-02-23] MEDS: Multiple Vitamins Tab PO SCH (10:40)
--- NOTE | 2017-02-23 12:40 | CP.PCM.PN ---
Subjective - Date & Time of Evaluation Date of Evaluation: 02/23/17 Time of Evaluation: 12:35 - Subjective Subjective: Patient seen today and medically improved. Patient reprots no abdominal pain. Patient wants to go for inpt rehab and also considering alternative rehab other than Safe house. Patient wants to see perinatal social worker to sign consent of release of information to contact the rehab. MSE- fairly developed male, casually dressed male oriented x 3, mood is calm, affect is reactive. speech is spontaneous. TP coherent- TC - no si or hi. no psychosis, still wants to go for inpt rehab. Attention/ Memory- fair. Insight/ Judgment improving. Impulse control fair. Objective - Vital Signs/Intake and Output Vital Signs (last 24 hours): Temp Pulse Resp BP Pulse Ox 97.4 F L 84 20 112/76 96 02/23/17 07:56 02/23/17 07:56 02/23/17 07:56 02/23/17 07:56 02/23/17 07:56 Intake and Output: 02/23/17 02/23/17 06:59 18:59 Intake Total 740 Balance 740 - Medications Medications: Current Medications Chlordiazepoxide (Librium) 50 mg PO Q4H PRN PRN Reason: Anxiety Last Admin: 02/23/17 08:56 Dose: 50 mg Folic Acid (Folic Acid) 1 mg PO DAILY [facility] Last Admin: 02/23/17 10:40 Dose: 1 mg Hydrocortisone (Anusol-Hc) 1 gm [place] BID [facility] Last Admin: 02/23/17 10:40 Dose: Not Given Ciprofloxacin (Cipro 400mg/200ml Dsw) 400 mg in 200 mls @ 133 mls/hr IVPB Q12H [facility] Last Admin: 02/23/17 08:57 Dose: 133 mls/hr Lorazepam (Ativan) 1 mg IVP Q3 PRN PRN Reason: Anxiety Last Admin: 02/22/17 02:11 Dose: 1 mg Morphine Sulfate (Morphine) 1 mg IV Q4 PRN PRN Reason: Pain, moderate (4-7) Last Admin: 02/23/17 08:57 Dose: 1 mg Multivitamins (Hexavitamin) 1 tab PO DAILY [facility] Last Admin: 02/23/17 10:40 Dose: 1 tab Nicotine (Nicoderm Cq) 1 patch TD DAILY [facility] Last Admin: 02/23/17 10:40 Dose: 1 patch Potassium Chloride (K-Dur 20 Meq Er Tab) 40 meq PO BID [facility] Last Admin: 02/23/17 10:40 Dose: 40 meq Thiamine HCl (Vitamin B1 Tab) 100 mg PO DAILY [facility] Last Admin: 02/23/17 10:40 Dose: 100 mg - Labs Labs: 02/20/17 07:06 02/22/17 06:51 - Constitutional Appears: Well, No Acute Distress - Head Exam Head Exam: NORMAL INSPECTION - Eye Exam Additional comments: no blurring of vision - ENT Exam ENT Exam: Normal Exam - Neck Exam Neck Exam: Full ROM - Respiratory Exam Respiratory Exam: NORMAL BREATHING PATTERN - Cardiovascular Exam Additional comments: no chest pain - GI/Abdominal Exam Additional comments: has mild abdominal pain, no nausea or vomiting, eating Kosher food. - Exam Additional comments: no dysuria - Back Exam Additional comments: no back pain - Neurological Exam Neurological Exam: Alert, Awake, Oriented x3 - Psychiatric Exam Psychiatric exam: Anxious, Normal Affect - Skin Skin Exam: Normal Color Assessment and Plan - Assessment and Plan (Free Text) Assessment: Alcohol dependence Alcoholic related pancreatitis Plan: Patient is medically stable for inpt rehab. Patient may go out for 5- 10 min with staff to breath fresh air. Social woker to see pt and assist pt with rehab referral.
[2017-02-23 17:28] LABS: GFR AFRICAN-AMERICAN > 60; GFR NON-AFRICAN AMERICAN > 60
[2017-02-23 17:29] LABS: BLOOD UREA NITROGEN 7 mg/dL (9-20); LIPASE 638 U/L (23-300)
[2017-02-23 17:30] LABS: CALCIUM 9.9 mg/dl (8.6-10.4)
--- NOTE | 2017-02-23 18:18 | CP.PCM.PN ---
Subjective - Date & Time of Evaluation Date of Evaluation: 02/23/17 Time of Evaluation: 18:16 - Subjective Subjective: pt feels beter oob ambulatry no tremors Objective - Vital Signs/Intake and Output Vital Signs (last 24 hours): Temp Pulse Resp BP Pulse Ox 98.3 F 101 H 20 110/74 97 02/23/17 16:00 02/23/17 16:00 02/23/17 16:00 02/23/17 16:00 02/23/17 16:00 Intake and Output: 02/23/17 02/23/17 06:59 18:59 Intake Total 740 840 Balance 740 840 - Medications Medications: Current Medications Chlordiazepoxide (Librium) 50 mg PO Q4H PRN PRN Reason: Anxiety Last Admin: 02/23/17 15:09 Dose: 50 mg Folic Acid (Folic Acid) 1 mg PO DAILY [facility] Last Admin: 02/23/17 10:40 Dose: 1 mg Hydrocortisone (Anusol-Hc) 1 gm [place] BID [facility] Last Admin: 02/23/17 17:46 Dose: Not Given Ciprofloxacin (Cipro 400mg/200ml Dsw) 400 mg in 200 mls @ 133 mls/hr IVPB Q12H [facility] Last Admin: 02/23/17 08:57 Dose: 133 mls/hr Lorazepam (Ativan) 1 mg IVP Q3 PRN PRN Reason: Anxiety Last Admin: 02/22/17 02:11 Dose: 1 mg Multivitamins (Hexavitamin) 1 tab PO DAILY [facility] Last Admin: 02/23/17 10:40 Dose: 1 tab Nicotine (Nicoderm Cq) 1 patch TD DAILY [facility] Last Admin: 02/23/17 10:40 Dose: 1 patch Potassium Chloride (K-Dur 20 Meq Er Tab) 40 meq PO BID [facility] Last Admin: 02/23/17 17:45 Dose: 40 meq Thiamine HCl (Vitamin B1 Tab) 100 mg PO DAILY [facility] Last Admin: 02/23/17 10:40 Dose: 100 mg - Labs Labs: 02/20/17 07:06 02/23/17 17:06 - Constitutional Appears: Non-toxic - Head Exam Head Exam: NORMAL INSPECTION - Eye Exam Eye Exam: Normal appearance Pupil Exam: NORMAL ACCOMODATION - ENT Exam ENT Exam: Mucous Membranes Moist - Neck Exam Neck Exam: Full ROM - Respiratory Exam Respiratory Exam: NORMAL BREATHING PATTERN - Cardiovascular Exam Cardiovascular Exam: REGULAR RHYTHM - GI/Abdominal Exam GI & Abdominal Exam: Normal Bowel Sounds - Rectal Exam Rectal Exam: NORMAL INSPECTION - Exam Exam: NORMAL INSPECTION - Back Exam Back Exam: NORMAL INSPECTION - Neurological Exam Neurological Exam: Normal Gait, Oriented x3 - Psychiatric Exam Psychiatric exam: Normal Mood - Skin Skin Exam: Normal Color Assessment and Plan - Assessment and Plan (Free Text) Assessment: s/p alc intoxication alc withdrwalpancreatitis cont as per psych treatment and janice for alc rehab Plan: as per orders
[2017-02-24] MEDS: Ciprofloxacin 400mg/200ml D5W 400 MG/200 ML BAG IVPB SCH ×2 (08:37→20:38)
[2017-02-24] MEDS: Multiple Vitamins Tab PO SCH (09:12)
[2017-02-24] MEDS: Hydrocortisone 2.5% Rectal Cream(30 gm) PR SCH ×2 (09:13→17:11)
[2017-02-24] MEDS: Potassium Chloride 20 mEq ER Tab PO SCH ×2 (09:13→17:12)
--- NOTE | 2017-02-24 10:28 | CP.PCM.PN ---
Subjective - Date & Time of Evaluation Date of Evaluation: 02/24/17 Time of Evaluation: 10:25 - Subjective Subjective: tolerating diet slight abd comfort Objective - Vital Signs/Intake and Output Vital Signs (last 24 hours): Temp Pulse Resp BP Pulse Ox 97.8 F 86 20 105/74 97 02/24/17 08:07 02/24/17 08:07 02/24/17 08:07 02/24/17 08:07 02/24/17 08:07 Intake and Output: 02/24/17 02/24/17 06:59 18:59 Intake Total 200 Balance 200 - Medications Medications: Current Medications Chlordiazepoxide (Librium) 50 mg PO Q4H PRN PRN Reason: Anxiety Last Admin: 02/24/17 08:35 Dose: 50 mg Folic Acid (Folic Acid) 1 mg PO DAILY [facility] Last Admin: 02/24/17 09:12 Dose: 1 mg Hydrocortisone (Anusol-Hc) 1 gm [place] BID [facility] Last Admin: 02/24/17 09:13 Dose: Not Given Ciprofloxacin (Cipro 400mg/200ml Dsw) 400 mg in 200 mls @ 133 mls/hr IVPB Q12H [facility] Last Admin: 02/24/17 08:37 Dose: 133 mls/hr Lorazepam (Ativan) 1 mg IVP Q3 PRN PRN Reason: Anxiety Last Admin: 02/22/17 02:11 Dose: 1 mg Multivitamins (Hexavitamin) 1 tab PO DAILY [facility] Last Admin: 02/24/17 09:12 Dose: 1 tab Nicotine (Nicoderm Cq) 1 patch TD DAILY [facility] Last Admin: 02/24/17 09:12 Dose: 1 patch Potassium Chloride (K-Dur 20 Meq Er Tab) 40 meq PO BID [facility] Last Admin: 02/24/17 09:13 Dose: Not Given Thiamine HCl (Vitamin B1 Tab) 100 mg PO DAILY [facility] Last Admin: 02/24/17 09:12 Dose: 100 mg - Labs Labs: 02/20/17 07:06 02/23/17 17:06 - Constitutional Appears: Non-toxic - Head Exam Head Exam: NORMAL INSPECTION - Eye Exam Eye Exam: Normal appearance Pupil Exam: NORMAL ACCOMODATION - ENT Exam ENT Exam: Mucous Membranes Moist - Neck Exam Neck Exam: Normal Inspection - Respiratory Exam Respiratory Exam: Clear to Ausculation Bilateral - Cardiovascular Exam Cardiovascular Exam: REGULAR RHYTHM - GI/Abdominal Exam GI & Abdominal Exam: Tenderness, Normal Bowel Sounds - Rectal Exam Rectal Exam: NORMAL INSPECTION - Exam Exam: NORMAL INSPECTION - Back Exam Back Exam: NORMAL INSPECTION - Neurological Exam Neurological Exam: Alert, Awake, Normal Gait, Oriented x3 - Psychiatric Exam Psychiatric exam: Normal Affect - Skin Skin Exam: Normal Color Assessment and Plan - Assessment and Plan (Free Text) Assessment: alcoholic pancreatitis improving s/p withdrwal Plan: for alc rehab in am
[2017-02-25 08:22] VITALS: BP 108/72; PULSE 82; TEMP 98; O2SAT 97
[2017-02-25] MEDS: Ciprofloxacin 400mg/200ml D5W 400 MG/200 ML BAG IVPB SCH (08:29)
[2017-02-25] MEDS: Multiple Vitamins Tab PO SCH (09:53)
[2017-02-25] MEDS: Potassium Chloride 20 mEq ER Tab PO SCH (10:00)
[2017-02-25] MEDS: Hydrocortisone 2.5% Rectal Cream(30 gm) PR SCH (10:00)
--- NOTE | 2017-02-25 14:31 | CP.PCM.PN ---
Subjective - Date & Time of Evaluation Date of Evaluation: 02/25/17 Time of Evaluation: 14:29 - Subjective Subjective: Patient seen today and now medically cleared to go for inpt rehab. Patient will be going to an inpt rehab in [facility].Doing better. MSE- fairly developed male, Ox3. mood is calm. speech is spontaneous. Affect is reactive. TP- coherent- TC- no si or hi. No psychosis. Attention and Memory fair. Insight and judgment fair. Impulse control fair. Objective - Vital Signs/Intake and Output Vital Signs (last 24 hours): Temp Pulse Resp BP Pulse Ox 98.0 F 82 20 108/72 97 02/25/17 08:21 02/25/17 08:21 02/25/17 08:21 02/25/17 08:21 02/25/17 08:21 - Medications Medications: Current Medications Chlordiazepoxide (Librium) 50 mg PO Q4H PRN PRN Reason: Anxiety Last Admin: 02/25/17 06:47 Dose: 50 mg Folic Acid (Folic Acid) 1 mg PO DAILY [facility] Last Admin: 02/25/17 09:53 Dose: 1 mg Hydrocortisone (Anusol-Hc) 1 gm [place] BID [facility] Last Admin: 02/24/17 17:11 Dose: Not Given Ciprofloxacin (Cipro 400mg/200ml Dsw) 400 mg in 200 mls @ 133 mls/hr IVPB Q12H [facility] Last Admin: 02/25/17 08:29 Dose: 133 mls/hr Lorazepam (Ativan) 1 mg IVP Q3 PRN PRN Reason: Anxiety Last Admin: 02/22/17 02:11 Dose: 1 mg Multivitamins (Hexavitamin) 1 tab PO DAILY [facility] Last Admin: 02/25/17 09:53 Dose: 1 tab Nicotine (Nicoderm Cq) 1 patch TD DAILY [facility] Last Admin: 02/25/17 09:53 Dose: 1 patch Potassium Chloride (K-Dur 20 Meq Er Tab) 40 meq PO BID [facility] Last Admin: 02/24/17 17:12 Dose: Not Given Thiamine HCl (Vitamin B1 Tab) 100 mg PO DAILY [facility] Last Admin: 02/25/17 09:53 Dose: 100 mg - Labs Labs: 02/20/17 07:06 02/23/17 17:06 - Constitutional Appears: Well, No Acute Distress - Head Exam Head Exam: NORMOCEPHALIC - Eye Exam Eye Exam: Normal appearance Pupil Exam: NORMAL ACCOMODATION - ENT Exam ENT Exam: Normal Exam - Respiratory Exam Respiratory Exam: NORMAL BREATHING PATTERN - Cardiovascular Exam Additional comments: no palpitations - GI/Abdominal Exam Additional comments: eating well, no abdominal pain - Exam Additional comments: no dysuria - Extremities Exam Additional comments: no tremors - Back Exam Additional comments: no back pain - Neurological Exam Neurological Exam: Alert, Awake, Normal Gait, Oriented x3 Assessment and Plan - Assessment and Plan (Free Text) Assessment: Alcohol dependence Alcoholic related pancreatitis Plan: Psych stable to go for inpt rehab in [facility]. Patient asking a for a few doses of Librium prn for use in his inpt rehab.
--- NOTE | 2017-02-25 16:46 | CP.PCM.DIS ---
Provider - Provider Date of Admission: 02/18/17 22:11 Attending physician: Naila Aguilar MD Primary care physician: pt came in for abd pain vomiting hi lipase alcoholic intoxicated then seen by psych started on librium started to tolerate food pain improved arangement was don for alc reahab will be d/c toay on librium and to alc rehabass ac pancreatitis alc abuse alc withdrwal Time Spent in preparation of Discharge (in minutes): 30 Hospital Course - Lab Results Lab Results: Most Recent Lab Values WBC 5.5 K/uL (4.8-10.8) 02/20/17 07:06 RBC 3.24 Mil/uL (4.40-5.90) L 02/20/17 07:06 Hgb 11.1 g/dL (12.0-18.0) L 02/20/17 07:06 Hct 32.4 % (35.0-51.0) L 02/20/17 07:06 MCV 99.9 fL (80.0-94.0) H 02/20/17 07:06 MCH 34.3 pg (27.0-31.0) H 02/20/17 07:06 MCHC 34.4 g/dL (33.0-37.0) 02/20/17 07:06 RDW 12.4 % (11.5-14.5) 02/20/17 07:06 Plt Count 187 K/uL (130-400) 02/20/17 07:06 MPV 8.1 fL (7.2-11.7) 02/20/17 07:06 Neut % (Auto) 50.1 % (50.0-75.0) 02/20/17 07:06 Lymph % (Auto) 26.8 % (20.0-40.0) 02/20/17 07:06 [place] % (Auto) 17.9 % (0.0-10.0) H 02/20/17 07:06 Eos % (Auto) 4.2 % (0.0-4.0) H 02/20/17 07:06 Baso % (Auto) 1.0 % (0.0-2.0) 02/20/17 07:06 Neut # 2.7 K/uL (1.8-7.0) 02/20/17 07:06 Lymph # 1.5 K/uL (1.0-4.3) 02/20/17 07:06 [place] # 1.0 K/uL (0.0-0.8) H 02/20/17 07:06 Eos # 0.2 K/uL (0.0-0.7) 02/20/17 07:06 Baso # 0.1 K/uL (0.0-0.2) 02/20/17 07:06 Sodium 139 mmol/L (132-148) 02/23/17 17:06 Potassium 4.2 mmol/L (3.6-5.2) 02/23/17 17:06 Chloride 102 mmol/L (98-107) 02/23/17 17:06 Carbon Dioxide 27 mmol/L (22-30) 02/23/17 17:06 Anion Gap 14 (10-20) 02/23/17 17:06 BUN 7 mg/dL (9-20) L 02/23/17 17:06 Creatinine 0.8 MG/DL (0.8-1.5) 02/23/17 17:06 Est GFR ( Amer) > 60 02/23/17 17:06 Est GFR (Non-Af Amer) > 60 02/23/17 17:06 POC Glucose (mg/dL) 81 mg/dL (65-110) 02/19/17 02:03 Random Glucose 115 mg/dL (75-110) H 02/23/17 17:06 Calcium 9.9 mg/dl (8.6-10.4) 02/23/17 17:06 Phosphorus 3.0 mg/dL (2.5-4.5) 02/19/17 11:55 Magnesium 1.7 mg/dL (1.6-2.3) 02/20/17 07:06 Total Bilirubin 1.3 mg/dL (0.2-1.3) 02/20/17 07:06 AST 61 U/L (17-59) H 02/20/17 07:06 ALT 49 U/L (21-72) 02/20/17 07:06 Alkaline Phosphatase 58 U/L (38-126) 02/20/17 07:06 NT-Pro-B Natriuret Pep 84.6 pg/mL (0-450) 02/20/17 07:06 Total Protein 6.2 g/dL (6.3-8.3) L 02/20/17 07:06 Albumin 3.3 g/dL (3.5-5.0) L 02/20/17 07:06 Globulin 2.9 gm/dL (2.2-3.9) 02/20/17 07:06 Albumin/Globulin Ratio 1.1 (1.0-2.1) 02/20/17 07:06 Amylase 339 U/L (30-110) H 02/19/17 02:36 Lipase 638 U/L (23-300) H 02/23/17 17:06 Prolactin 11.4 ng/mL (3.7-17.9) 02/19/17 11:55 Urine Color Anne (YELLOW) 02/18/17 20:52 Urine Clarity Hazy (Clear) 02/18/17 20:52 Urine pH 5.0 (5.0-8.0) 02/18/17 20:52 Ur Specific Martin 1.020 (1.003-1.030) 02/18/17 20:52 Urine Protein 2+ mg/dL (NEGATIVE) H 02/18/17 20:52 Urine Glucose (UA) Normal mg/dL (Normal) 02/18/17 20:52 Urine Ketones 1+ mg/dL (NEGATIVE) H 02/18/17 20:52 Urine Blood Negative (NEGATIVE) 02/18/17 20:52 Urine Nitrate Negative (NEGATIVE) 02/18/17 20:52 Urine Bilirubin 1+ (NEGATIVE) H 02/18/17 20:52 Urine Urobilinogen 4.0 mg/dL (0.2-1.0) 02/18/17 20:52 Ur Leukocyte Esterase Neg Devin/uL (Negative) 02/18/17 20:52 Urine WBC (Auto) 6 /hpf (0-5) H 02/18/17 20:52 Urine RBC (Auto) < 1 /hpf (0-3) 02/18/17 20:52 Ur Squamous Epith Cells 1 /hpf (0-5) 02/18/17 20:52 Urine Bacteria Rare (<OCC) 02/18/17 20:52 Hyaline Casts >20 /lpf (0-2) H 02/18/17 20:52 Urine Opiates Screen Positive (NEGATIVE) 02/18/17 20:52 Urine Methadone Screen Negative (NEGATIVE) 02/18/17 20:52 Ur Barbiturates Screen Negative (NEGATIVE) 02/18/17 20:52 Ur Phencyclidine Scrn Negative (NEGATIVE) 02/18/17 20:52 Ur Amphetamines Screen Negative (NEGATIVE) 02/18/17 20:52 U Benzodiazepines Scrn Positive (NEGATIVE) 02/18/17 20:52 U Oth Cocaine Metabols Negative (NEGATIVE) 02/18/17 20:52 U Cannabinoids Screen Negative (NEGATIVE) 02/18/17 20:52 Alcohol, Quantitative 144 mg/dl (0-10) H 02/18/17 20:35 C. difficile Ag & Toxin Negative (NEGATIVE) 02/18/17 23:55 Discharge Exam - Head Exam Head Exam: NORMOCEPHALIC Discharge Plan - Follow Up Plan Condition: STABLE Disposition: HOME/ ROUTINE Instructions: Thiamine (Vitamin B-1) (By mouth), Folic Acid (By mouth), Nicotine (Absorbed through the skin), How to Stop Smoking (DC), Pancreatitis (DC ), Diet for Ulcers and Gastritis (GEN), Cigarette Smoking and Your Health (GEN) , Abuse of Alcohol (DC), Alcohol Withdrawal (DC) Additional Instructions: Patient discharged to inpatient drug rehab, set by case management. Patient is to return to the ED if symptoms persist. Referrals: Naila Aguilar MD [Staff Provider] -
== END 2017-02-25 16:56 | disposition home or self-care (01) | DRG 204 ==
LOC: C.ER 19:05 → C.9E 22:11 → C.3T 22:50 → C.9E 02-19 00:25 → C.5T 02-19 01:26
PROVIDERS: ADMIT Internal Medicine; ATTEND Internal Medicine
PROC: HZ2ZZZZ Detoxification Services for Substance Abuse Treatment (ICD-10-PCS; principal; 2017-02-18)
DX: K85.20 Alcohol induced acute pancreatitis without necrosis or infection (principal); E83.51 Hypocalcemia; E87.6 Hypokalemia; F10.230 Alcohol dependence with withdrawal, uncomplicated; F17.210 Nicotine dependence, cigarettes, uncomplicated; Y90.6 Blood alcohol level of 120-199 mg/100 ml; F10.220 Alcohol dependence with intoxication, uncomplicated

== ENCOUNTER 2017-09-29 12:31 | Emergency (ER) | payer MEDICAID ==
[2017-09-29 12:32] VITALS: BMI 23.0
--- NOTE | 2017-09-29 14:26 | C.PDOC ---
History Of Present Illness 42-year-old male, PMHx includes EtOH abuse and Pancreatitis, presents to the emergency department, requesting pain medication for chronic abdominal pain and alcohol detox. Patients last drink was this morning. He was discharged from [facility] this morning for EtOH withdrawal. Denies nausea/vomiting, fevers, chills, chest pain, shortness of breath, dizziness or any other associated symptoms. No other complaints at this time. Time Seen by Provider: 09/29/17 13:15 Chief Complaint (Nursing): Substance Abuse History Per: Patient History/Exam Limitations: no limitations Past Medical History Reviewed: Historical Data, Nursing Documentation, Vital Signs Vital Signs: Last Vital Signs Temp 98.2 F 09/29/17 17:17 Pulse 94 H 09/29/17 17:17 Resp 16 09/29/17 17:17 BP 102/64 09/29/17 17:17 Pulse Ox 96 09/29/17 18:30 - Medical History PMH: Anxiety, Pancreatitis, Seizures (1 time) Denies: Diabetes, Hepatitis, HIV, HTN, Chronic Kidney Disease, Sexually Transmitted Disease - [facility] Procedures DETOXIFICATION SERVICES FOR SUBSTANCE ABUSE TREATMENT (02/18/17) Family History: States: No Known Family Hx - Social History Hx Alcohol Use: Yes Hx Substance Use: No - Immunization History Hx Tetanus Toxoid Vaccination: No Hx Influenza Vaccination: No Hx Pneumococcal Vaccination: No Review Of Systems Except As Marked, All Systems Reviewed And Found Negative. Constitutional: Negative for: Fever Cardiovascular: Negative for: Chest Pain, Palpitations Respiratory: Negative for: Shortness of Breath Gastrointestinal: Positive for: Abdominal Pain. Negative for: Vomiting Neurological: Negative for: Weakness, Numbness, Headache, Dizziness Psych: Negative for: Suicidal ideation Physical Exam - Physical Exam Appears: Non-toxic, No Acute Distress, Other (EtOH on breath) Skin: Warm, Dry, No Rash Head: Atraumatic, Normacephalic Eye(s): bilateral: Other (Dilated pupils) Nose: Normal Oral Mucosa: Moist Lips: Normal Appearing Neck: Normal ROM Chest: Symmetrical Cardiovascular: Rhythm Regular, No Murmur Respiratory: Normal Breath Sounds, No Accessory Muscle Use Gastrointestinal/Abdominal: Soft, Tenderness (Diffuse), No Guarding, No Rebound Extremity: Normal ROM Neurological/Psych: Oriented x3 ED Course And Treatment - Laboratory Results Result Diagrams: 09/29/17 14:56 09/29/17 14:56 O2 Sat by Pulse Oximetry: 96 (RA) - CT Scan/US CT Abd/Pel Other Rad Studies (CT/US): Read By Radiologist, Radiology Report Reviewed CT/US Interpretation: Accession No. : [id number]. Patient Name / ID : TRAVIS FLORES / [id number]. Exam Date : 09/29/2017 17:50:58 ( Approved ). Study Comment : Sex / Age : M / 42Y. Creator : Arely Fitch. Dictator : Rhianna Lindsay MD. Pull Up Hand : Lining Repairer : Rhianna Lindsay MD. Approver2 : Report Date : 09/29/2017 17:56:42. My Comment : . PROCEDURE: CT Abdomen and Pelvis with contrast. HISTORY: abd. pain. COMPARISON: Abdominal ultrasound performed 02/19/17. TECHNIQUE: Contrast dose: 100 mL Omnipaque 300. Radiation dose: Total exam DLP = 399.27 mGy-cm. This CT exam was performed using one or more of the following dose reduction techniques: Automated exposure control, adjustment of the mA and/or kV according to patient size, and/ or use of iterative reconstruction technique. FINDINGS: LOWER THORAX: No visible consolidation, pleural effusion, or pneumothorax. LIVER: Unremarkable. GALLBLADDER AND BILE DUCTS: Unremarkable. PANCREAS: Unremarkable. SPLEEN: Unremarkable. ADRENALS: Unremarkable. KIDNEYS AND URETERS: The kidneys enhance symmetrically. No hydronephrosis or obstructing calculus identified. VASCULATURE: No aortic aneurysm. BOWEL: Stomach is nondistended. Lack of oral contrast limits evaluation for bowel pathology. Bowel loops appear within normal limits of caliber without evidence of obstruction. Moderate constipation. APPENDIX: The appendix appears within normal limits of caliber. No secondary signs of acute appendicitis. PERITONEUM : No significant free fluid. No definite free air. LYMPH NODES: Sub cm mesenteric and retroperitoneal lymph nodes, nonspecific. BLADDER: Unremarkable. REPRODUCTIVE: Unremarkable. BONES: Degenerative changes. OTHER FINDINGS: None. IMPRESSION: Moderate constipation. Medical Decision Making Medical Decision Making: Patient was refused detox by Dr Pozo, due to being discharged from [facility] today. His labs and CT are unremarkable. Patient will be discharged for outpatient f/u with clinic. All questions were answered. Disposition Counseled Patient/Family Regarding: Studies Performed, Diagnosis, Need For Followup - Disposition Referrals: [facility] [Outside] Disposition: HOME/ ROUTINE Disposition Time: 18:20 Condition: IMPROVED Additional Instructions: follow up with medical clinic in 2 days call to make an appointment take medications as prescribed return to ER if symptoms worsens or progress Prescriptions: Famotidine [Pepcid] 20 mg PO BID #20 tab Instructions: Abdominal Pain (ED), Alcohol Dependence (ED) Forms: [facility] (Taiwanese), General Discharge Instructions - Clinical Impression Clinical Impression: Abdominal pain, Alcoholism - Scribe Statement The provider has reviewed the documentation as recorded by the Scribe (Ashely Leone) All medical record entries made by the Scribe were at my direction and personally dictated by me. I have reviewed the chart and agree that the record accurately reflects my personal performance of the history, physical exam, medical decision making, and the department course for this patient. I have also personally directed, reviewed, and agree with the discharge instructions and disposition.
[2017-09-29 15:01] LABS: BASO # 0.1 K/uL (0.0-0.2); BASO % 1.1 % (0.0-2.0); EOS # 0.2 K/uL (0.0-0.7); EOS % 1.8 % (0.0-4.0); HEMOGLOBIN 14.5 g/dL (12.0-18.0); LYMPH # 2.5 K/uL (1.0-4.3); LYMPH % 22.3 % (20.0-40.0); MEAN CELL VOLUME 94.9 fL (80.0-94.0); MEAN CORPUSCULAR HEMOGLOBIN 32.5 pg (27.0-31.0); MEAN CORPUSCULAR HGB CONC 34.2 g/dL (33.0-37.0); MEAN PLATELET VOLUME 7.9 fL (7.2-11.7); MONO # 0.9 K/uL (0.0-0.8); MONO % 8.1 % (0.0-10.0); NEUT # 7.6 K/uL (1.8-7.0); NEUT % 66.7 % (50.0-75.0); RBC 4.47 Mil/uL (4.40-5.90); RED CELL DISTRIBUTION WIDTH 15.1 % (11.5-14.5); WHITE BLOOD COUNT 11.4 K/uL (4.8-10.8)
[2017-09-29 15:13] LABS: ALB/GLOB RATIO 1.3 (1.0-2.1); ALBUMIN 4.4 g/dL (3.5-5.0); ALT/SGPT 81 U/L (21-72); AST/SGOT 46 U/L (17-59); BLOOD UREA NITROGEN 7 mg/dL (9-20); CALCIUM 9.3 mg/dl (8.6-10.4); GFR AFRICAN-AMERICAN > 60; GFR NON-AFRICAN AMERICAN > 60; LIPASE 83 U/L (23-300)
[2017-09-29 15:38] LABS: URINE BILIRUBIN NEGATIVE (NEGATIVE); URINE BLOOD NEGATIVE (NEGATIVE); URINE CLARITY Clear (Clear); URINE COLOR Straw (YELLOW); URINE GLUCOSE (UA) NORMAL (Normal); URINE LEUKOCYTE ESTERASE NEG Leu/uL (Negative); URINE NITRATE NEGATIVE (NEGATIVE); URINE PROTEIN NEGATIVE (NEGATIVE); URINE UROBILINOGEN NORMAL mg/dL (0.2-1.0)
[2017-09-29 15:54] LABS: BARBITURATES, UR NEGATIVE (NEGATIVE); OPIATES, UR NEGATIVE (NEGATIVE); PHENCYCLIDINE, UR NEGATIVE (NEGATIVE)
[2017-09-29 16:14] LABS: BENZODIAZEPINES, UR POSITIVE (NEGATIVE)
[2017-09-29] MEDS ORDERED: Iohexol 300 100 ML IJ ONE (17:05)
[2017-09-29 17:17] VITALS: BP 102/64; PULSE 94; RESP 16; TEMP 98.2
--- NOTE | 2017-09-29 18:10 | CT ---
PROCEDURE: CT Abdomen and Pelvis with contrast HISTORY: abd. pain COMPARISON: Abdominal ultrasound performed 02/19/17 TECHNIQUE: Contrast dose: 100 mL Omnipaque 300 Radiation dose: Total exam DLP = 399.27 mGy-cm. This CT exam was performed using one or more of the following dose reduction techniques: Automated exposure control, adjustment of the mA and/or kV according to patient size, and/or use of iterative reconstruction technique. FINDINGS: LOWER THORAX: No visible consolidation, pleural effusion, or pneumothorax. LIVER: Unremarkable. GALLBLADDER AND BILE DUCTS: Unremarkable. PANCREAS: Unremarkable. SPLEEN: Unremarkable. ADRENALS: Unremarkable. KIDNEYS AND URETERS: The kidneys enhance symmetrically. No hydronephrosis or obstructing calculus identified. VASCULATURE: No aortic aneurysm. BOWEL: Stomach is nondistended. Lack of oral contrast limits evaluation for bowel pathology. Bowel loops appear within normal limits of caliber without evidence of obstruction. Moderate constipation. APPENDIX: The appendix appears within normal limits of caliber. No secondary signs of acute appendicitis. PERITONEUM: No significant free fluid. No definite free air. LYMPH NODES: Sub cm mesenteric and retroperitoneal lymph nodes, nonspecific. BLADDER: Unremarkable. REPRODUCTIVE: Unremarkable. BONES: Degenerative changes. OTHER FINDINGS: None. IMPRESSION: Moderate constipation.
[2017-09-29 18:22] VITALS: O2SAT 96
== END 2017-09-29 18:50 | disposition home or self-care (01) ==
LOC: C.ER 12:31
DX: R10.9 Unspecified abdominal pain (principal); F10.20 Alcohol dependence, uncomplicated; Y90.4 Blood alcohol level of 80-99 mg/100 ml
CPT/HCPCS: 74177; 80053; 80320; 80324; 80345; 80346; 80349; 80353; 80358; 80361; 81001; 83690; 83992; 85025; 96374; 99284; C9113; Q9967

== ENCOUNTER 2017-10-25 13:10 | Emergency (ER) | payer MEDICAID ==
[2017-10-25 13:10] VITALS: BMI 23.0
[2017-10-25 13:35] VITALS: O2SAT 100
[2017-10-25] MEDS ORDERED: Sodium Chloride 0.9% 1,000 ML IV ONE (14:03)
[2017-10-25] MEDS ORDERED: Multivitamin (MVI) 10 ML, Thiamine 100 MG, Folic Acid 1 MG in Sodium Chloride 0.9% 1,00... IV ONE (14:08)
--- NOTE | 2017-10-25 14:08 | C.PDOC ---
History Of Present Illness <Arabella Gould - Last Filed: 10/25/17 15:50> <Keila Clemens - Last Filed: 10/25/17 17:36> 42 year old male, with a long history of ethanol dependency, presents to the ED with complaint of generalized abdominal pain which began 1 day ago. Patient states he has chronic abdominal pain related to chronic pancreatitis, but admits that he continues to drink. Patient states his last drink was at 0800 today. Patient reports he has undergone detox today, and is expressing interest this time. Patient is very evasive in answering direct questions and is perseverating on what his lipase levels are. Patient states he began withdrawing and took shots of vodka prior to ED arrival. He also reports having black stools. Patient denies vomiting, hematemesis, and diarrhea. (Keila Clemens) <Arabella Gould - Last Filed: 10/25/17 15:50> History Per: Patient History/Exam Limitations: no limitations Onset/Duration Of Symptoms: Hrs Current Symptoms Are (Timing): Still Present Location Of Pain/Discomfort: Diffuse Radiation Of Pain To:: None Quality Of Discomfort: "Pain" Associated Symptoms: denies: Nausea, Vomiting, Diarrhea Additional History Per: Patient <Keila Clemens - Last Filed: 10/25/17 17:36> Chief Complaint (Nursing): Abdominal Pain Past Medical History Reviewed: Historical Data, Nursing Documentation, Vital Signs - Medical History PMH: Anxiety, Pancreatitis (january 2017), Seizures Denies: Diabetes, Hepatitis, HIV, HTN, Chronic Kidney Disease, Sexually Transmitted Disease Surgical History: No Surg Hx Family History: States: Unknown Family Hx - Social History Hx Alcohol Use: Yes (20) Hx Substance Use: No - Immunization History Hx Tetanus Toxoid Vaccination: No Hx Influenza Vaccination: No Hx Pneumococcal Vaccination: No <Keila Clemens - Last Filed: 10/25/17 17:36> Vital Signs: Last Vital Signs Temp 98.0 F 10/25/17 16:42 Pulse 94 H 10/25/17 16:42 Resp 20 10/25/17 16:42 BP 132/88 10/25/17 16:42 Pulse Ox 100 10/25/17 16:42 - [facility] Procedures DETOXIFICATION SERVICES FOR SUBSTANCE ABUSE TREATMENT (02/18/17) Review Of Systems Gastrointestinal: Positive for: Abdominal Pain, Other (black stool). Negative for: Vomiting, Diarrhea, Hematemesis <Keila Clemens - Last Filed: 10/25/17 17:36> Physical Exam - Physical Exam Appears: Non-toxic, No Acute Distress Skin: Normal Color, Warm, Dry, No Jaundice Head: Atraumatic, Normacephalic Eye(s): bilateral: Normal Inspection Oral Mucosa: Moist, Other (alcohol on breath) Neck: Supple Chest: Symmetrical, No Deformity, No Tenderness Cardiovascular: Rhythm Regular, No Murmur Respiratory: Normal Breath Sounds, No Rales, No Rhonchi, No Wheezing Gastrointestinal/Abdominal: Soft, No Mass, No Guarding, No Rebound, Other (mild , generalized discomfort, mainly around epigastric region ) Extremity: Normal ROM, Capillary Refill (less than 2 seconds ) Neurological/Psych: Oriented x3, Normal Speech, Normal Cognition <Keila Clemens - Last Filed: 10/25/17 17:36> ED Course And Treatment - Laboratory Results Result Diagrams: 10/25/17 14:21 10/25/17 14:21 <Arabella Gould - Last Filed: 10/25/17 15:50> - Laboratory Results Result Diagrams: 10/25/17 14:21 10/25/17 14:21 O2 Sat by Pulse Oximetry: 100 (on RA ) Pulse Ox Interpretation: Normal Progress Note: Bloodwork and UA ordered and reviewed. Morphine IVP, Protonix IVP, Zofran IVP, and IV Fluids administered. <Keila Clemens - Last Filed: 10/25/17 17:36> Disposition <Arabella Gould - Last Filed: 10/25/17 15:50> - Disposition Disposition Time: 17:36 <Keila Clemens - Last Filed: 10/25/17 17:36> - Disposition Referrals: Alcoholics Anonymous [Outside] Disposition: HOME/ ROUTINE Condition: GOOD Instructions: Alcohol Abuse and Alcoholism (DC) Forms: [facility] (Syriac) Print Language: SURINAMESE - Clinical Impression Clinical Impression: Abdominal colic, Alcohol intoxication <Arabella Gould - Last Filed: 10/25/17 15:50> - Scribe Statement The provider has reviewed the documentation as recorded by the Scribe (Fidelia Lucas) <Keila Clemens - Last Filed: 10/25/17 17:36> - Scribe Statement Provider Attestation: All medical record entries made by the Scribe were at my direction and personally dictated by me. I have reviewed the chart and agree that the record accurately reflects my personal performance of the history, physical exam, medical decision making, and the department course for this patient. I have also personally directed, reviewed, and agree with the discharge instructions and disposition. (Keila Clemens) Addendum <Arabella Gould - Last Filed: 10/25/17 15:50> <Keila Clemens - Last Filed: 10/25/17 17:36> Addendum: 10/25/17 15:50 REQUESTED BY PT AND DR CLEMENS TO PROVIDE SECOND OPINION. PS CAME TO ER "BC I AM CONCERNED ABOUT MY LIPASE LEVELS". PER PT, S/P MULT ER VISITS AT VARIOUS ER' S IN [facility] FOR SAME, "MY LIPASE WAS 298" OVER 2 VISITS OVER SEV DAYS [facility]. GIVE "ENZYME LOWERING PILL" TWICE, AND GIVEN RX FOR SAME. PT DENIES "FREQUENT DRINKING" BUT DRANK SHIPPING PACKER DUE TO CONCERN FOR ETOH WITHDRAWAL. PS PMD ADVISED THAT HE NEEDS TO GO TO ER WHENVER HIS LIPASE IS OVER 130. PS HAS A GI DOCTOR WELL. EXAM ABOVE, LABS REVIEWED. PT ADVISED CURRENT LIPASE IMPROVED COMPARED TO HIS STATED PRIOR RESULTS. NO INDICATION FOR ADMISSION. FU GI/PMD/DETOX PREV ADVISED (Arabella Gould)
[2017-10-25 14:26] LABS: BASO # 0.1 K/uL (0.0-0.2); BASO % 0.6 % (0.0-2.0); EOS # 0.4 K/uL (0.0-0.7); EOS % 3.9 % (0.0-4.0); HEMOGLOBIN 14.2 g/dL (12.0-18.0); LYMPH # 2.2 K/uL (1.0-4.3); LYMPH % 22.8 % (20.0-40.0); MEAN CELL VOLUME 95.6 fL (80.0-94.0); MEAN CORPUSCULAR HEMOGLOBIN 33.6 pg (27.0-31.0); MEAN CORPUSCULAR HGB CONC 35.2 g/dL (33.0-37.0); MEAN PLATELET VOLUME 7.6 fL (7.2-11.7); MONO # 0.8 K/uL (0.0-0.8); MONO % 7.8 % (0.0-10.0); NEUT # 6.3 K/uL (1.8-7.0); NEUT % 64.9 % (50.0-75.0); RBC 4.22 Mil/uL (4.40-5.90); RED CELL DISTRIBUTION WIDTH 14.9 % (11.5-14.5); WHITE BLOOD COUNT 9.8 K/uL (4.8-10.8)
[2017-10-25 14:38] LABS: ALB/GLOB RATIO 1.2 (1.0-2.1); ALBUMIN 4.4 g/dL (3.5-5.0); ALT/SGPT 35 U/L (21-72); AST/SGOT 35 U/L (17-59); BLOOD UREA NITROGEN 8 mg/dL (9-20); GFR AFRICAN-AMERICAN > 60; GFR NON-AFRICAN AMERICAN > 60; LIPASE 95 U/L (23-300)
[2017-10-25] MEDS ORDERED: Sodium Chloride 0.9% 1,000 ML ONE (14:43)
[2017-10-25] MEDS ORDERED: Morphine 4 MG/ML VIAL ONE (14:43)
[2017-10-25 14:44] LABS: URINE BILIRUBIN NEGATIVE (NEGATIVE); URINE BLOOD NEGATIVE (NEGATIVE); URINE CLARITY Clear (Clear); URINE COLOR Straw (YELLOW); URINE GLUCOSE (UA) NORMAL (Normal); URINE LEUKOCYTE ESTERASE NEG Leu/uL (Negative); URINE NITRATE NEGATIVE (NEGATIVE); URINE PROTEIN NEGATIVE (NEGATIVE); URINE UROBILINOGEN NORMAL mg/dL (0.2-1.0)
[2017-10-25 15:10] LABS: BARBITURATES, UR NEGATIVE (NEGATIVE); OPIATES, UR NEGATIVE (NEGATIVE); PHENCYCLIDINE, UR NEGATIVE (NEGATIVE)
[2017-10-25 15:48] LABS: BENZODIAZEPINES, UR POSITIVE (NEGATIVE)
[2017-10-25 16:42] VITALS: BP 132/88; PULSE 94; RESP 20; TEMP 98
== END 2017-10-25 17:30 | disposition home or self-care (01) ==
LOC: C.ER 13:10
DX: R10.84 Generalized abdominal pain (principal); F10.129 Alcohol abuse with intoxication, unspecified; Y90.6 Blood alcohol level of 120-199 mg/100 ml
CPT/HCPCS: 80053; 80320; 80324; 80345; 80346; 80349; 80353; 80358; 80361; 81001; 83690; 83992; 85025; 96361; 96374; 96375; 99283; C9113; J2270; J2405; J7040

== ENCOUNTER 2017-10-26 07:49 | Inpatient (IN) | payer MEDICAID ==
[2017-10-26 07:50] VITALS: BMI 23.0
[2017-10-26 08:47] LABS: BARBITURATES, UR NEGATIVE (NEGATIVE); PHENCYCLIDINE, UR NEGATIVE (NEGATIVE)
[2017-10-26 08:50] LABS: BENZODIAZEPINES, UR POSITIVE (NEGATIVE); OPIATES, UR POSITIVE (NEGATIVE)
--- NOTE | 2017-10-26 11:06 | C.PDOC ---
History Of Present Illness 42 y/o male presents to the ER requesting detox from ETOH. Patient denies any suicidal ideation, homicidal ideation, denies any active physical complaints. Pt appears comfortable, appropriate, not in any apparent distress. FYI: ED records review . Pt was seen on 10/25/17 at [facility] ED was evaluated due to abdominal pain, " possible high LFT, Lipase", discharged. Pt was seen 10/26/17 Am at [facility] due to same abdominal pain and discharges home this AM, prior to current ED visit. Time Seen by Provider: 10/26/17 07:51 Chief Complaint (Nursing): Substance Abuse History Per: Patient History/Exam Limitations: no limitations Past Medical History Reviewed: Historical Data, Nursing Documentation, Vital Signs Vital Signs: Last Vital Signs Temp 98.2 F 10/26/17 13:06 Pulse 98 H 10/26/17 13:06 Resp 18 10/26/17 13:06 BP 113/90 10/26/17 13:06 Pulse Ox 100 10/26/17 16:51 - Medical History PMH: Anxiety, Pancreatitis (january 2017), Seizures Denies: Diabetes, Hepatitis, HIV, HTN, Chronic Kidney Disease, Sexually Transmitted Disease Other Surgeries: Hx of surgeries - [employer] Procedures DETOXIFICATION SERVICES FOR SUBSTANCE ABUSE TREATMENT (02/18/17) Family History: States: No Known Family Hx - Social History Hx Alcohol Use: Yes (20) Hx Substance Use: No - Immunization History Hx Tetanus Toxoid Vaccination: No Hx Influenza Vaccination: No Hx Pneumococcal Vaccination: No Review Of Systems Except As Marked, All Systems Reviewed And Found Negative. Psych: Negative for: Suicidal ideation Physical Exam - Physical Exam Appears: Well, Non-toxic, No Acute Distress Skin: Normal Color, Warm, No Rash Head: Atraumatic, Normacephalic Eye(s): bilateral: PERRL Nose: No Flaring Oral Mucosa: Moist, No Drooling Tongue: Normal Appearing Lips: Normal Appearing Neck: Trachea Midline, No Midline Cervical Tenderness, No Paracervical Tenderness, No Step Off Deformity, Supple Cardiovascular: Rhythm Regular, No Murmur, No JVD Respiratory: No Decreased Breath Sounds, No Accessory Muscle Use, No Rales, No Rhonchi, No Wheezing Gastrointestinal/Abdominal: Soft, No Tenderness, No Organomegaly, No Distention , No Guarding, No Rebound Back: No CVA Tenderness Extremity: Normal ROM, No Tenderness, No Deformity, No Swelling Neurological/Psych: Oriented x3, Normal Speech, Normal Motor, Normal Sensation ED Course And Treatment O2 Sat by Pulse Oximetry: 100 (RA) Pulse Ox Interpretation: Normal Progress Note: Blood work review from [facility] ED visit few hours ago and appaers without acute findings. UDS ordered. On re-evaluation, pt resting comforably, not in any apparent distress. Pt is medically cleared for PES evaluation. After, pt was seen and evaluated by PES, case discussed with , admission recommend to detox with Dx; Alcohol dependance. Disposition - Disposition Disposition: HOSPITALIZED Disposition Time: 11:12 Condition: STABLE - Clinical Impression Clinical Impression: Drug dependence - PA / COLORIST PHOTOGRAPHY / Resident Statement MD/DO has reviewed & agrees with the documentation as recorded. - Scribe Statement The provider has reviewed the documentation as recorded by the Tammieibe Mira Martinez Provider Attestation All medical record entries made by the Scribe were at my direction and personally dictated by me. I have reviewed the chart and agree that the record accurately reflects my personal performance of the history, physical exam, medical decision making, and the department course for this patient. I have also personally directed, reviewed, and agree with the discharge instructions and disposition.
[2017-10-26] MEDS: Multiple Vitamins Tab PO SCH (12:30)
--- NOTE | 2017-10-26 13:15 | PCM.BM ---
<Hilda Castillo - Last Filed: 10/26/17 13:13> Treatment Plan Problems - Problems identified on initial assessmt potential for alcohol withdrawal Date Initiated: 10/26/17 Time Initiated: 13:14 Assessment reference: NA Status: Active anxiety Date Initiated: 10/26/17 Time Initiated: 13:14 Assessment reference: NA Status: Active - Milieu Protocol Maintain good personal hygiene: daily Encourage regular showers, daily Remind patient to perform daily oral care, daily Assist patient to perform ADL's Conduct patient checks and document Observation sheet: Q15 minutes Maintain personal safety: every shift Educate patient to report safety concerns to staff, every shift Monitor environment for contraband/sharps Medication safety: Monitor for expected outcome, potential side effects: every shift, Assess barriers to learning: every shift, Assess readiness for medication education: every shift <Alfonso Pozo - Last Filed: 10/28/17 08:12> - Diagnosis (1) Alcoholism Status: Acute Interventions: 10/28/17 08:12 * Assess 7x/week regarding severity of withdrawal * Educate regarding risks, benefits, side effects and alternatives of medications * Use Motivational Interviewing for abstinence * Use CBT for relapse prevention * Medication management for withdrawal symptoms * Encourage medication assisted treatment *
--- NOTE | 2017-10-26 23:47 | PCM.PSYCH ---
Initial Psychiatric Evaluation - Initial Psychiatric Evaluation Type of Admission: Voluntary Legal Status: Capacity Chief Complaint (in patient's own words): "Alcohol" History of Present Illness and Precipitating Events: 42 yo white M, with PMHx of pancreatitis (January 2017) who initially presented here to the ED 2 days ago with abdominal pain. Patient had stated at that time that it felt just like his prior episode of pancreatitis. However his lipase was within normal limits at 65 U/L. Patient was subsequently discharged from the ED. Yesterday morning, patient was seen at [place] [facility], with persistent abdominal pain. Lipase remained within normal range, he was subsequently given analgesia and discharged home. Patient decided to come back to [facility] ED yesterday afternoon, requesting detox for alcohol. At this time, patient is in NAD and denies any abdominal pain, n/v/d. He reports a long-standing history of alcohol use and that he frequently uses on-and-off. His last relapse was around Aug 24. 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 Around the same time, he had gotten himself a new apartment in [place]. However, because he was laid off he was having difficulties maintaining the apartment, had a dispute with the landlord and lost this housing. He was able to stay place his belonging in storage and stay in a hotel in the meantime. During his stay in the hotel, he decided to begin drinking again. Shortly after this relapse, he was seen at [facility], who instructed him to f/u with outpatient detox. He does not have any specific plan following discharge but is interested in "sober living". No other complaints are noted at this time. The pt is entitled, grandiose, sounds rigid, self-centered and opinionated. Detox: "multiple" and "AA meetings" Rehab Hx:Completed rehab at [facility] ([place], [place]) Medical Hx: Pancreatitis, abdominal colic (unspecified etiology: gastritis and/ or colitis), h/o seizures Medications: denies Psych Hx: denies Legal: States that he is in the midst of housing dispute with his apartment in [place] Current Medications: Active Medications Generic Name Dose Route Start Last Admin Trade Name Freq PRN Reason Stop Dose Admin Acetaminophen 650 mg 03/05/18 12:31 10/26/17 17:18 Tylenol 325mg Tab PO 650 mg Q6 PRN Administration Pain, moderate (4-7) Chlordiazepoxide 25 mg 10/26/17 12:13 Librium PO Q4H PRN Alcohol Withdrawal Chlordiazepoxide 50 mg 10/26/17 18:00 10/26/17 17:53 Librium PO 10/31/17 17:59 50 mg Q6H FELIPA Administration Taper Clonidine HCl 0.1 mg 10/26/17 12:13 Catapres PO Q4H PRN Symptoms of alcohol withdrawl Folic Acid 1 mg 10/26/17 12:30 10/26/17 12:30 Folic Acid PO 1 mg DAILY FELIPA Administration Gabapentin 100 mg 10/26/17 14:00 10/26/17 17:18 Neurontin PO 100 mg TID FELIPA Administration Hydroxyzine HCl 25 mg 10/26/17 12:31 Atarax PO Q4H PRN Anxiety Multivitamins 1 tab 10/26/17 12:30 10/26/17 12:30 Hexavitamin PO 1 tab DAILY FELIPA Administration Nicotine 1 patch 10/26/17 18:00 10/26/17 17:53 Nicoderm Cq TD 1 patch DAILY FELIPA Administration Thiamine HCl 100 mg 10/26/17 12:30 10/26/17 12:30 Vitamin B1 Tab PO 100 mg DAILY FELIPA Administration Trazodone HCl 50 mg 10/26/17 12:29 Desyrel PO HS PRN Insomnia Past Psychiatric History - Past Psychiatric History Previous Treatment History: None History of ETOH/Drug Use: (+) ETOH and tobacco Pertinent Medical Hx (Current Medical&Sleep Prob, Allergies): Allergies Allergy/AdvReac Type Severity Reaction Status Date / Time No Known Allergies Allergy Verified 10/26/17 07:59 Folic Acid 1 mg PO DAILY tab 02/25/17 Multivitamins [Hexavitamin] 1 tab PO DAILY tab 02/25/17 Thiamine [Vitamin B1 Tab] 100 mg PO DAILY tab 02/25/17 Review of Systems - Cardiovascular Cardiovascular: absent: Chest Pain - Respiratory Respiratory: absent: Dyspnea - Gastrointestinal Gastrointestinal: absent: Abdominal Pain, Change in Bowel Habits, Diarrhea, Nausea, Vomiting - Neurological Neurological: absent: Abnormal Gait, Dizziness, Numbness, Syncope, Tremor, Weakness - Psychiatric Psychiatric: Abnormal Sleep Pattern, Anxiety, Difficulty Concentrating, Irritability. absent: Homicidal Ideation, Paranoia, Suicidal Ideation Mental Status Examination - Personal Presentation Personal Presentation: Looks stated age - Affect Affect: Constricted - Motor Activity Motor Activity: Calm - Reliability in Providing Information Reliability in Providing Information: Good - Speech Speech: Organized - Mood Mood: Anxious - Formal Thought Process Formal Thought Process: No Impairment - Cognitive Functions Orientation: Person, Place, Situation, Time Sensorium: Alert Attention/Concentration: Attentive Estimate of Intelligence: Average Judgement: Intact, as evidence by: Insight regarding need for hospitalization Memory: Recent intact, as evidence by: Ability to recall events of the day, Remote intact, as evidenced by: Abilit to recall sig. life events - Risk Risk: Seizure, Withdrawal, Diminished functioning - Strength & Assets Inventory Strength & Assets Inventory: Cooperative - Limitations Limitations: Living alone DSM 5 DX - DSM 5 DSM 5 Diagnosis: Alcohol withdrawal Alcohol use d/o - severe Personality d/o - unspecified r/o Narcissistic personality d/o - Recommended/Plan of Treatment Treatment Recommendations and Plan of Treatment: Librium detox As needed medications Gabapentin for augmentation All risks, benefits and alternatives of medications, including no medications, discussed and the patient understood and agreed. Attend groups and activities Supportive therapy and psychoeducation Infdiv tx for pers. D/o FL for abstinence CBT for relapse prevention Encourage MAT Refer to rehab or IOP Attend self-help groups as well 34 min Projected ELOS: 4-5 days Prognosis: good - Smoking Cessation Smoking Cessation Initiated: Yes
[2017-10-27] MEDS: Multiple Vitamins Tab PO SCH (09:20)
--- NOTE | 2017-10-27 12:21 | PCM.PYCHPN ---
Psychiatric Progress Note - Psychiatric Progress Note Patient seen today, length of contact: 15 min Patient Chief Complaint: "I'm totally fine" Problems Identified/Issues Discussed: The pt is seen, chart reviewed, case discussed with staff. Support given, CBT and [place] used briefly Patient states that he feels fine. Denies any abdominal pain, n/v/d, tremors, syncope or seizure. Reports sleeping fine last night. No other new symptoms noted, improving slowly and needs more time No SEs from medications, risks discussed. After care discussed, patient states that he would like some sort of sober living in either [place] or [place], which ever is feasible. However, he continues to devaluate treatment (ED drs, naltrexone, rehab etc.) and admits to liking alcohol and has a high risk of relapse. Poor insight, entitled, rigid and at times grandiose. Medication Change: Yes (detox changes daily) Medical Record Reviewed: Yes Mental Status Examination - Cognitive Function Orientation: Person, Place, Situation, Time Memory: Intact Attention: WNL Concentration: WNL Association: WNL Fund of Knowledge: WNL - Mood Mood: Anxious - Affect Affect: Constricted - Speech Speech: Appropriate - Formal Thought Process Formal Thought Process: No Impairment - Suicidal Ideation Suicidal Ideation: No - Homicidal Ideation Homicidal Ideation: No Goal/Treatment Plan - Goal/Treatment Plan Need for Continued Stay: Remain at risks for inpatient hospitalization, Severe depression anxiety, Discharge may exacerbated symptoms, Severe functional impairment Progress Toward Problem(s) and Goals/Treatment Plan: Librium detox As needed medications Gabapentin for augmentation All risks, benefits and alternatives of medications, including no medications, discussed and the patient understood and agreed. Attend groups and activities Supportive therapy and psychoeducation [place] for abstinence CBT for relapse prevention Encourage MAT Refer to rehab or IOP Attend self-help groups as well Limit setting and therapy for personality d/o Estimated Date of D/C: 10/30/17 - Smoking Cessation Smoking Cessation Initiated: Yes
[2017-10-28] MEDS: Multiple Vitamins Tab PO SCH (09:12)
--- NOTE | 2017-10-28 13:51 | PCM.PYCHPN ---
Psychiatric Progress Note - Psychiatric Progress Note Patient seen today, length of contact: 16 min Patient Chief Complaint: "I'm alright" Problems Identified/Issues Discussed: The pt is seen, chart reviewed, case discussed with staff. Support given, CBT and [place] used briefly. Patient maintains that he feels just fine. Denies any abdominal pain, n/v/d, tremors, syncope or seizure.Denies any issues sleeping last night. No other new symptoms noted, improving slowly and needs more time. No SEs from medications, risks discussed. Patient continues to express thoughts and ideas of grandeur. He states that he is totally fine, does not need further care after discharge because he will "always be an alcoholic". After care was discussed, patient states that "I don't want to live in [place] but I will if I have to". He devalues the team's ability to find adequate housing for him, and requests internet access to look it up programs himself. Will continue to look for long-term support. Medication Change: Yes (detox changes daily) Medical Record Reviewed: Yes Mental Status Examination - Cognitive Function Orientation: Person, Place, Situation, Time Memory: Intact Attention: WNL Concentration: WNL Association: WNL Fund of Knowledge: WNL - Mood Mood: Anxious - Affect Affect: Constricted - Speech Speech: Appropriate - Formal Thought Process Formal Thought Process: No Impairment - Suicidal Ideation Suicidal Ideation: No - Homicidal Ideation Homicidal Ideation: No Goal/Treatment Plan - Goal/Treatment Plan Need for Continued Stay: Remain at risks for inpatient hospitalization, Severe depression anxiety, Discharge may exacerbated symptoms, Severe functional impairment Progress Toward Problem(s) and Goals/Treatment Plan: Librium detox As needed medications Gabapentin for augmentation All risks, benefits and alternatives of medications, including no medications, discussed and the patient understood and agreed. Attend groups and activities Supportive therapy and psychoeducation [place] for abstinence CBT for relapse prevention Encourage MAT Refer to rehab or IOP Attend self-help groups as well Limit setting and therapy for personality d/o Estimated Date of D/C: 10/30/17
[2017-10-29] MEDS: Multiple Vitamins Tab PO SCH (09:05)
[2017-10-29 09:49] VITALS: RESP 18
--- NOTE | 2017-10-29 12:00 | PCM.PYCHPN ---
Psychiatric Progress Note - Psychiatric Progress Note Patient seen today, length of contact: 17 min Patient Chief Complaint: "I'm anxious" Problems Identified/Issues Discussed: The pt is seen, chart reviewed, case discussed with staff. The pt is compliant with medications and reports no side-effects. Symptoms are improving but needs more time to stabilize. After care discussed, support and psychoeducation given. He is, again, splitting, devaluating and distorting things, ie "you will kick me out tomorrow" (?) He was also very disruptive and devaluating in the group yesterday that he was almost asked to leave to protect others from his negativity. Medication Change: Yes (detox changes daily) Medical Record Reviewed: Yes Mental Status Examination - Cognitive Function Orientation: Person, Place, Situation, Time Memory: Intact Attention: WNL Concentration: WNL Association: WNL Fund of Knowledge: WNL - Mood Mood: Anxious - Affect Affect: Constricted - Speech Speech: Appropriate - Formal Thought Process Formal Thought Process: No Impairment - Suicidal Ideation Suicidal Ideation: No - Homicidal Ideation Homicidal Ideation: No Goal/Treatment Plan - Goal/Treatment Plan Need for Continued Stay: Remain at risks for inpatient hospitalization, Severe depression anxiety, Discharge may exacerbated symptoms, Severe functional impairment Progress Toward Problem(s) and Goals/Treatment Plan: Librium detox As needed medications Gabapentin for augmentation All risks, benefits and alternatives of medications, including no medications, discussed and the patient understood and agreed. Attend groups and activities Supportive therapy and psychoeducation [place] for abstinence CBT for relapse prevention Encourage MAT Refer to rehab or IOP Attend self-help groups as well Limit setting and therapy for personality d/o Estimated Date of D/C: 10/30/17
[2017-10-29 17:15] VITALS: PULSE 87; TEMP 97.6
[2017-10-30 06:24] VITALS: BP 113/75; O2SAT 97
--- NOTE | 2017-10-30 08:48 | PCM.PYCHDC ---
Mental Status Examination - Mental Status Examination Orientation: Person, Place, Situation, Time Memory: Intact Mood: Anxious Affect: Constricted Speech: Appropriate Attention: WNL Concentration: WNL Association: WNL Fund of Knowledge: WNL Formal Thought Process: No Impairment Suicidal Ideation: No Current Homicidal Ideation?: No Discharge Summary - Discharge Note Reason for Hospitalization: Alcohol detox Consultations:: List each consultation separately and include: 1. Reason for request. 2. Findings. 3. Follow-up Summary of Hospital Course include:: 1. Description of specific treatment plan utilized for patients during their course of treatmen. 2. Summarize the time- course for resolution of acute symptoms and/or regressed behaviors. 3. Describe issues identified and worked on during hospitalization. 4. Describe medication utilized. 5. Describe medical problems identified and treated. 6. Reassessment of suicide risk Summary of Hospital Course: On admission: He is seen today again, chart reviewed and case discussed. 42 yo white M, with PMHx of pancreatitis (January 2017) who initially presented here to the ED 2 days ago with abdominal pain. Patient had stated at that time that it felt just like his prior episode of pancreatitis. However his lipase was within normal limits at 65 U/L. Patient was subsequently discharged from the ED. Yesterday morning, patient was seen at [facility], with persistent abdominal pain. Lipase remained within normal range, he was subsequently given analgesia and discharged home. Patient decided to come back to [facility] ED yesterday afternoon, requesting detox for alcohol. At this time, patient is in NAD and denies any abdominal pain, n/v/d. He reports a long-standing history of alcohol use and that he frequently uses on-and-off. His last relapse was around Aug 24. 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 Around the same time, he had gotten himself a new apartment in [place]. However, because he was laid off he was having difficulties maintaining the apartment, had a dispute with the landlord and lost this housing. He was able to stay place his belonging in storage and stay in a hotel in the meantime. During his stay in the hotel, he decided to begin drinking again. Shortly after this relapse, he was seen at [facility], who instructed him to f/u with outpatient detox. He does not have any specific plan following discharge but is interested in "sober living". No other complaints are noted at this time. The pt is entitled, grandiose, sounds rigid, self-centered and opinionated. Detox: "multiple" and "AA meetings" Rehab Hx:Completed rehab at [facility] ([place], [place]) Medical Hx: Pancreatitis, abdominal colic (unspecified etiology: gastritis and/ or colitis), h/o seizures Medications: denies Psych Hx: denies Legal: States that he is in the midst of housing dispute with his apartment in [place] Hospital course: The pt was admitted and started on treatment with psychotherapy, support, psychoeducation and medications. [place] and CBT used. The pt attended groups and activities, as well as milieu therapy. All the risks and benefits of medications are discussed and the patient understood and agreed. The pt improved with the treatments provided. After care discussed with the patient. Uninterested in treatment and more interested in "finding a place to stay" Will attend AA, he is recommended to check rehab at [facility] and also will talk to FANY Mcintosh in [facility]. He was extremely narcissistic to the point of distrupting treatment of other patients, i.e. talking negatively about anything related to treatment, such as Vivitrol, groups, AA, rehabs, etc. This also hindered his own treatment in terms of agreeing with potential referrals. 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 Follow after care plan as discussed. Use relapse prevention skills Return to ER or call 911 if suicidal, homicidal or symptoms relapse. Stay away from stress, alcohol and drugs. See primary doctor regularly and get labs. Prescriptions/Medication Reconciliation: Gabapentin [Neurontin] 300 mg PO TID #90 cap traZODone [Desyrel] 100 mg PO HS PRN #30 tab PRN Reason: Insomnia - Smoking Cessation Smoking Cessation Medication prescribed: No
== END 2017-10-30 09:00 | disposition home or self-care (01) | DRG 745 ==
LOC: C.ER 07:49 → C.7D 11:12
PROVIDERS: ADMIT Psychiatry & Neurology Psychiatry; ATTEND Psychiatry & Neurology Psychiatry
PROC: HZ2ZZZZ Detoxification Services for Substance Abuse Treatment (ICD-10-PCS; principal; 2017-10-26)
DX: F11.10 Opioid abuse, uncomplicated (principal); F10.239 Alcohol dependence with withdrawal, unspecified; F19.10 Other psychoactive substance abuse, uncomplicated; F60.81 Narcissistic personality disorder